=== PATIENT | male | born 1970 | race Two or more races ===

== ENCOUNTER 2016-04-12 21:46 | Emergency (ER) | payer MEDICARE, MEDICAID ==
[~2016-04-12] VITALS: Ht 177.8 cm; Wt 145.1 kg
[~2016-04-12 21:46] MED LIST: CYCL10TA3 PO; DIVA500T12 PO; IBUP600T27 PO; LAM100T OR; LEVE100020 PO; LEVE750T3 PO; NAP500T PO; WARF5TAB71 PO
[2016-04-13 11:34] VITALS: BP 122/78
== END 2016-04-13 13:06 | disposition home or self-care (01) ==
LOC: ER 21:48
DX: S86.911A Strain of unspecified muscle(s) and tendon(s) at lower leg level, right leg, initial encounter (principal); E66.01 Morbid (severe) obesity due to excess calories; Z68.42 Body mass index [BMI] 45.0-49.9, adult; I11.0 Hypertensive heart disease with heart failure; I50.9 Heart failure, unspecified; E11.9 Type 2 diabetes mellitus without complications; G40.909 Epilepsy, unspecified, not intractable, without status epilepticus; E78.5 Hyperlipidemia, unspecified; I48.91 Unspecified atrial fibrillation; Z88.6 Allergy status to analgesic agent; Z88.1 Allergy status to other antibiotic agents
CPT/HCPCS: 29505; 73562

== ENCOUNTER 2016-06-29 13:55 | Emergency (ER) | payer MEDICARE, MEDICAID ==
[~2016-06-29] VITALS: Ht 177.8 cm; Wt 150.1 kg
[2016-06-29 14:49] VITALS: BP 128/86
== END 2016-06-29 15:06 | disposition home or self-care (01) ==
LOC: ER 13:55
DX: G89.29 Other chronic pain (principal); M54.41 Lumbago with sciatica, right side; I48.91 Unspecified atrial fibrillation; I11.0 Hypertensive heart disease with heart failure; I50.9 Heart failure, unspecified; F41.9 Anxiety disorder, unspecified; E66.9 Obesity, unspecified; Z68.42 Body mass index [BMI] 45.0-49.9, adult; Z88.6 Allergy status to analgesic agent; Z88.1 Allergy status to other antibiotic agents; Z79.01 Long term (current) use of anticoagulants

== ENCOUNTER 2016-09-10 09:34 | Emergency (ER) | payer MEDICARE, MEDICAID ==
[~2016-09-10] VITALS: Ht 182.9 cm; Wt 99.8 kg
[2016-09-10 10:10] LABS: Basophils # (auto) 0.1 uL; Basophils % (auto) 0.6 % (0.0-2.0); CONDITION Y; Eosinophils # (auto) 0.1 uL; Eosinophils % (auto) 1.2 % (0.0-7.0); Hematocrit 43.4 % (41.0-53.0); Hemoglobin 14.4 g/dL (13.5-17.5); Lymphocytes # (auto) 1.4 uL; Lymphocytes % (auto) 16.2 % (10.0-50.0); Mean Corpuscular Hemoglobin 29.6 pg (28.0-32.0); Mean Corpuscular Hgb Conc. 33.2 g/dL (32.0-36.0); Mean Corpuscular Volume 89.2 fL (80.0-100.0); Mean Platelet Volume 8.4 fL (7.4-10.4); Monocytes # (auto) 0.6 uL; Monocytes % (auto) 6.3 % (0.0-12.0); Neutrophils # (auto) 6.6 uL; Neutrophils % (auto) 75.7 % (37.0-80.0); Platelet Count (auto) 205 10^3/uL (140-450); Red Cell Distribution Width 15.3 % (11.6-16.0); White Blood Cell 8.8 10^3/uL (4.4-10.8)
[2016-09-10 10:32] LABS: Albumin 3.2 g/dL (3.4-5.0); BUN/Creatinine Ratio 8.3; Calcium 8.4 mg/dL (8.5-10.1); Potassium 3.8 mmol/L (3.5-5.1)
[2016-09-10 10:34] LABS: Bilirubin, Total 0.4 mg/dL (0.2-1.0); Total Protein 7.2 g/dL (6.4-8.2)
[2016-09-10] MEDS ORDERED: VALPROATE INJ 250 MG in SODIUM CHL 0.9% 50 ML IV ONE (11:30)
[2016-09-10] MEDS ORDERED: LORazepam 0.5 MG TAB PO ONE (11:30)
[2016-09-10 12:15] VITALS: BP 132/88
== END 2016-09-10 12:46 | disposition home or self-care (01) ==
LOC: EDBD 09:34 → ER 09:37
DX: G40.909 Epilepsy, unspecified, not intractable, without status epilepticus (principal); R42 Dizziness and giddiness; I48.91 Unspecified atrial fibrillation; I11.0 Hypertensive heart disease with heart failure; I50.9 Heart failure, unspecified; Z87.891 Personal history of nicotine dependence
CPT/HCPCS: 36415; 70450; 80053; 80164; 85025; 96365

== ENCOUNTER → 2016-10-31 | Outpatient (CLI) | payer MEDICARE, MEDICAID ==
[2016-10-31 11:49] LABS: Basophils # (auto) 0 uL; Basophils % (auto) 0.3 % (0.0-2.0); CONDITION Y; Eosinophils # (auto) 0.1 uL; Eosinophils % (auto) 1.1 % (0.0-7.0); Hematocrit 43.4 % (41.0-53.0); Hemoglobin 14.7 g/dL (13.5-17.5); Lymphocytes # (auto) 1.6 uL; Lymphocytes % (auto) 18.5 % (10.0-50.0); Mean Corpuscular Hgb Conc. 33.8 g/dL (32.0-36.0); Mean Corpuscular Volume 88.9 fL (80.0-100.0); Mean Platelet Volume 8.4 fL (7.4-10.4); Monocytes # (auto) 0.5 uL; Neutrophils # (auto) 6.3 uL; Neutrophils % (auto) 74.1 % (37.0-80.0); Platelet Count (auto) 195 10^3/uL (140-450); Red Cell Distribution Width 14.8 % (11.6-16.0); White Blood Cell 8.6 10^3/uL (4.4-10.8)
[2016-10-31 12:05] LABS: INR 1.05 (0.9-1.15); Prothrombin Time 11.5 sec (9.37-12.3)
[2016-10-31 12:25] LABS: Albumin 3.4 g/dL (3.4-5.0)
[2016-10-31 13:19] LABS: BUN/Creatinine Ratio 8.5
[2016-10-31 13:20] LABS: Bilirubin, Total 0.5 mg/dL (0.2-1.0); Potassium 4.6 mmol/L (3.5-5.1); Total Protein 7.2 g/dL (6.4-8.2)
[2016-10-31 13:21] LABS: Calcium 8.6 mg/dL (8.5-10.1)
== END | disposition home or self-care (01) ==
LOC: LAB 11:31
PROVIDERS: ATTEND Physician Assistant
DX: I10 Essential (primary) hypertension (principal); I48.1 Persistent atrial fibrillation; D64.9 Anemia, unspecified; Z79.01 Long term (current) use of anticoagulants; Z79.899 Other long term (current) drug therapy
CPT/HCPCS: 36415; 80053; 80061; 82306; 82607; 83036; 85025; 85610

== ENCOUNTER 2016-11-30 11:28 | Inpatient (IN) | payer MEDICARE, MEDICAID ==
[~2016-11-30] VITALS: Ht 180.3 cm; Wt 142.7 kg
[2016-11-30] MEDS ORDERED: SODIUM CHLORIDE 0.9% 1,000 ML IVB ONE (11:39)
[2016-11-30] MEDS ORDERED: LORazepam 2MG/ML-1ML VIAL IV ONE (11:45)
[2016-11-30 13:06] LABS: Basophils # (auto) 0.1 uL; Basophils % (auto) 0.7 % (0.0-2.0); Eosinophils # (auto) 0 uL; Eosinophils % (auto) 0.6 % (0.0-7.0); Hematocrit 44.1 % (41.0-53.0); Hemoglobin 14.7 g/dL (13.5-17.5); Lymphocytes # (auto) 1.3 uL; Lymphocytes % (auto) 15.8 % (10.0-50.0); Mean Corpuscular Hemoglobin 30.4 pg (28.0-32.0); Mean Corpuscular Hgb Conc. 33.5 g/dL (32.0-36.0); Mean Corpuscular Volume 90.9 fL (80.0-100.0); Monocytes # (auto) 0.6 uL; Monocytes % (auto) 7.2 % (0.0-12.0); Neutrophils # (auto) 6.2 uL; Neutrophils % (auto) 75.7 % (37.0-80.0); Nucleated Red Blood Cells % 0.1 %; Platelet Count (auto) 156 10^3/uL (140-450); Red Cell Distribution Width 15.2 % (11.6-16.0); White Blood Cell 8.2 10^3/uL (4.4-10.8)
[2016-11-30 13:18] LABS: Albumin 3.2 g/dL (3.4-5.0); Anion Gap 8 (5-15); Aspartate Aminotransferase 22 U/L (15-37); BUN/Creatinine Ratio 11.8; Blood Urea Nitrogen 10 mg/dL (7-18); Calcium 8.6 mg/dL (8.5-10.1); Carbon Dioxide 25 mmol/L (21-32); Chloride 107 mmol/L (98-107); GFR African American 126 mL/min; GFR Non-African American 104 mL/min; Glucose 98 mg/dL (74-106); Magnesium 2.3 mg/dL (1.6-2.6); Sodium 140 mmol/L (136-145)
[2016-11-30 13:21] LABS: Alkaline Phosphatase 48 U/L (45-117); Bilirubin, Total 0.4 mg/dL (0.2-1.0); Total Protein 6.9 g/dL (6.4-8.2)
[2016-11-30] MEDS: SODIUM CHLORIDE 0.9% 1,000 ML IV SCH ×2 (14:14→21:47)
[2016-11-30] MEDS ORDERED: PROMETHAZINE HCL 25 MG/ML 1ML IV PRN (14:15)
[2016-11-30] MEDS ORDERED: ACETAMINOPHEN 500 MG TAB PO PRN (14:15)
[2016-11-30] MEDS ORDERED: MORPHINE SULFATE 4 MG/ML SYRG IV PRN (14:15)
[2016-11-30] MEDS ORDERED: TEMAZEPAM 15 MG CAP PO PRN (14:15)
[2016-11-30] MEDS ORDERED: MORPHINE SULF INJ 2 MG/ML SYRINGE 1ML IV PRN (14:15)
[2016-11-30] MEDS ORDERED: LACTULOSE 20Gm/30ML SOLN PO PRN (14:15)
[2016-11-30] MEDS ORDERED: HYDROcodone-ACET 5/325MG TAB PO PRN (14:15)
[2016-11-30] MEDS ORDERED: NITROGLYCERIN 0.4 MG SL TAB SL PRN (14:15)
[2016-11-30] MEDS ORDERED: LORazepam 2MG/ML-1ML VIAL IV PRN (14:15)
[2016-11-30] MEDS ORDERED: LORazepam 0.5 MG TAB PO PRN (14:15)
[2016-11-30] MEDS ORDERED: MORPHINE SULF INJ 2 MG/ML SYRINGE 1ML ONE (15:24)
[2016-11-30] MEDS: ENOXAPARIN SOD 40 MG/0.4 ML SYRINGE SC SCH (15:29)
[2016-11-30] MEDS ORDERED: LEVETIRACETAM 500 MG TAB PO ONE (15:30)
[2016-11-30] MEDS ORDERED: DIGO1TAB37 PO (18:49)
[2016-11-30] MEDS ORDERED: CEPH500C PO (18:49)
[2016-11-30] MEDS ORDERED: HYDR-4663 PO (18:49)
[2016-11-30] MEDS ORDERED: HYDROcodone-ACET 10/325MG TAB PO PRN (19:30)
[2016-11-30 21:30] VITALS: BP 120/80
[2016-11-30] MEDS: LEVETIRACETAM 500 MG TAB PO SCH (21:48)
[2016-11-30] MEDS ORDERED: LEVETIRACETAM 500 MG TAB PO SCH (22:00)
[2016-11-30 23:52] VITALS: BP_SYST 115; BP_SYST 117; BP_DIAS 59; BP_DIAS 65
[2016-12-01 05:00] VITALS: BP 120/59
[2016-12-01 06:21] LABS: Cholesterol 156 mg/dL (< 200); HDL Cholesterol 21 mg/dL (40-59); LDL Cholesterol 125 mg/dL (< 100); Triglycerides 204 mg/dL (< 150)
[2016-12-01 09:00] VITALS: BP 128/66
[2016-12-01 10:28] LABS: Urine Bilirubin Negative (Negative); Urine Blood Negative /uL (Negative); Urine Color Yellow (Yellow); Urine Glucose Normal (Normal); Urine Ketone Negative (Negative); Urine Nitrite Negative (Negative); Urine RBC <1 /hpf (0 - 3); Urine Squamous Epithelial Cell FEW /hpf (<5); Urine Urobilinogen Normal (Negative)
[2016-12-01] MEDS: ENOXAPARIN SOD 40 MG/0.4 ML SYRINGE SC SCH (10:58)
[2016-12-01] MEDS: LEVETIRACETAM 500 MG TAB PO SCH (10:58)
[2016-12-01 14:20] VITALS: BP 121/52
[2016-12-01 15:01] VITALS: BP 121/52
== END 2016-12-01 15:45 | disposition home or self-care (01) | DRG 101 ==
LOC: EDBD 11:28 → ER 11:28 → TELE 11:29 → TELE-CENTR 17:21
PROVIDERS: ADMIT Internal Medicine; ATTEND Internal Medicine
DX: G40.409 Other generalized epilepsy and epileptic syndromes, not intractable, without status epilepticus (principal); Z68.41 Body mass index [BMI] 40.0-44.9, adult; I10 Essential (primary) hypertension; I48.0 Paroxysmal atrial fibrillation; E66.01 Morbid (severe) obesity due to excess calories; M54.5 Low back pain; G47.33 Obstructive sleep apnea (adult) (pediatric); E11.9 Type 2 diabetes mellitus without complications; F17.200 Nicotine dependence, unspecified, uncomplicated; G89.29 Other chronic pain; R32 Unspecified urinary incontinence; Z79.899 Other long term (current) drug therapy; Z82.49 Family history of ischemic heart disease and other diseases of the circulatory system; Z83.3 Family history of diabetes mellitus; Z88.1 Allergy status to other antibiotic agents; Z88.5 Allergy status to narcotic agent; Z79.01 Long term (current) use of anticoagulants
CPT/HCPCS: 36415; 70450; 71010; 80053; 80061; 80164; 80307; 80320; 81001; 82542; 83735; 85025; 85652; 93005; 96374; 96375

== ENCOUNTER → 2016-12-05 | Outpatient (CLI) | payer MEDICARE, MEDICAID ==
[~2016-12-05] VITALS: Ht 177.8 cm; Wt 145.1 kg
[~2016-12-05] MED LIST changes: +ADENOSINE 122 MG in GIVE UN-DILUTED 0 ML IV STA; +ALBUTEROL SULF 2.5 MG/0.5ML(0.5%) NEB SOLN ONE; +CEPH500C PO; +DIGO1TAB37 PO; +HYDR-4663 PO; +IPRATROPIUM BROM 0.5 MG/2.5ML INH SOL ONE
== END | disposition home or self-care (01) ==
LOC: XY 06:44
PROVIDERS: ATTEND Internal Medicine Cardiovascular Disease
DX: I48.91 Unspecified atrial fibrillation (principal); R06.02 Shortness of breath
CPT/HCPCS: 78452; 93017; 93306; A9500; J0153

== ENCOUNTER 2017-01-01 17:08 | Emergency (ER) | payer MEDICARE, MEDICAID ==
[~2017-01-01] VITALS: Ht 177.8 cm; Wt 145.1 kg
[~2017-01-01 17:08] MED LIST changes: -ADENOSINE 122 MG in GIVE UN-DILUTED 0 ML IV STA; -ALBUTEROL SULF 2.5 MG/0.5ML(0.5%) NEB SOLN ONE; -IPRATROPIUM BROM 0.5 MG/2.5ML INH SOL ONE
[2017-01-01 18:43] VITALS: BP 123/88
[2017-01-01] MEDS ORDERED: ONDANSETRON HCL 4 MG/2 ML VIAL IM ONE (19:15)
[2017-01-01] MEDS ORDERED: HYDROmorphone HCL 2 MG/ML VL IM ONE (19:15)
== END 2017-01-01 20:03 | disposition home or self-care (01) ==
LOC: ER 17:13
DX: G89.29 Other chronic pain (principal); M54.5 Low back pain; M54.31 Sciatica, right side; M54.16 Radiculopathy, lumbar region; M79.1 Myalgia; I11.0 Hypertensive heart disease with heart failure; I50.9 Heart failure, unspecified; I48.91 Unspecified atrial fibrillation; Z88.6 Allergy status to analgesic agent; Z88.1 Allergy status to other antibiotic agents; Z79.899 Other long term (current) drug therapy
CPT/HCPCS: 96372; 99284; J1170; J2405

== ENCOUNTER 2017-01-02 22:40 | Emergency (ER) | payer MEDICARE, MEDICAID ==
[~2017-01-02] VITALS: Ht 177.8 cm; Wt 145.1 kg
[2017-01-03 07:24] VITALS: BP 129/80
[2017-01-03] MEDS ORDERED: PROMETHAZINE HCL 25 MG/ML 1ML IM ONE (08:00)
[2017-01-03] MEDS ORDERED: HYDROmorphone HCL 2 MG/ML VL IM ONE (08:00)
== END 2017-01-03 08:19 | disposition home or self-care (01) ==
LOC: EDBD 22:40 → ER 22:42
DX: G89.29 Other chronic pain (principal); M54.5 Low back pain; M54.16 Radiculopathy, lumbar region; I11.0 Hypertensive heart disease with heart failure; I50.9 Heart failure, unspecified; I48.91 Unspecified atrial fibrillation; Z79.899 Other long term (current) drug therapy; Z88.6 Allergy status to analgesic agent; Z88.1 Allergy status to other antibiotic agents
CPT/HCPCS: 96372; 99284; J1170; J2550

== ENCOUNTER → 2017-01-10 | Outpatient (CLI) | payer MEDICARE, MEDICAID ==
[~2017-01-10] MED LIST changes: -HYDR-4663 PO; +HYDR-4683 PO
[2017-01-10 12:13] LABS: Hematocrit 46.2 % (41.0-53.0); Hemoglobin 15.7 g/dL (13.5-17.5); Mean Corpuscular Hemoglobin 30.4 pg (28.0-32.0); Mean Corpuscular Volume 89.5 fL (80.0-100.0); Mean Platelet Volume 8.2 fL (6.9-10.8); Platelet Count (auto) 189 10^3/uL (140-450); Red Cell Distribution Width 14.5 % (11.8-14.3); White Blood Cell 12.3 10^3/uL (4.4-10.8)
[2017-01-10 12:17] LABS: Metamyelocytes % 0; Myelocytes % 0; Promyelocytes % 0; Reactive Lymphocytes 0
[2017-01-10 12:37] LABS: Large Platelets FEW; Platelet Estimate Adequate; RBC Morphology Normal
[2017-01-10 12:49] LABS: Albumin 3.5 g/dL (3.4-5.0); Bilirubin, Total 0.7 mg/dL (0.2-1.0); Total Protein 7.7 g/dL (6.4-8.2)
== END | disposition home or self-care (01) ==
LOC: LAB 11:54
PROVIDERS: ATTEND Internal Medicine Cardiovascular Disease
DX: I48.1 Persistent atrial fibrillation (principal); R79.89 Other specified abnormal findings of blood chemistry; I10 Essential (primary) hypertension; E11.9 Type 2 diabetes mellitus without complications
CPT/HCPCS: 36415; 80053; 80061; 84439; 84443; 84481; 85007; 85027

== ENCOUNTER 2017-04-30 00:40 | Emergency (ER) | payer MEDICARE, MEDICAID ==
[~2017-04-30] VITALS: Ht 180.3 cm; Wt 136.1 kg
[2017-04-30 00:55] VITALS: BP 118/79
[2017-04-30] MEDS ORDERED: HYDROcodone-ACET 10/325MG TAB PO ONE (04:45)
== END 2017-04-30 05:05 | disposition home or self-care (01) ==
LOC: EDBD 00:40 → ER 00:50
DX: S43.422A Sprain of left rotator cuff capsule, initial encounter (principal); I11.0 Hypertensive heart disease with heart failure; I50.9 Heart failure, unspecified; I48.91 Unspecified atrial fibrillation; Z79.01 Long term (current) use of anticoagulants; X58.XXXA Exposure to other specified factors, initial encounter; Y93.89 Activity, other specified; Y92.89 Other specified places as the place of occurrence of the external cause; Y99.8 Other external cause status
CPT/HCPCS: 73030; 93005

== ENCOUNTER 2017-05-14 11:00 | Inpatient (IN) | payer MEDICARE, MEDICAID ==
[~2017-05-14] VITALS: Ht 172.7 cm; Wt 144.5 kg
[2017-05-14] MEDS ORDERED: LEVETIRACETAM INJ 1,000 MG in D5W 5% 100 ML IV ONE (11:45)
[2017-05-14 12:13] LABS: Hematocrit 43.5 % (41.0-53.0); Hemoglobin 14.7 g/dL (13.5-17.5); Mean Corpuscular Hemoglobin 30.2 pg (28.0-32.0); Mean Corpuscular Hgb Conc. 33.9 g/dL (32.0-36.0); Mean Corpuscular Volume 89.2 fL (80.0-100.0); Platelet Count (auto) 184 10^3/uL (140-450); Red Blood Cells 4.88 10^6/uL (4.5-5.90); Red Cell Distribution Width 14.6 % (11.8-14.3); White Blood Cell 8.1 10^3/uL (4.4-10.8)
[2017-05-14 12:17] LABS: Basophils % (manual) 0 (0.0-2.0); Blast Cells 0; Eosinophils % (manual) 0 (0-7); Metamyelocytes % 0; Myelocytes % 0; Promyelocytes % 0; Reactive Lymphocytes 0
[2017-05-14 12:33] LABS: Albumin 3.3 g/dL (3.4-5.0); BUN/Creatinine Ratio 11.8; Calcium 8.5 mg/dL (8.5-10.1); Potassium 4.2 mmol/L (3.5-5.1)
[2017-05-14 12:36] LABS: Bilirubin, Total 0.3 mg/dL (0.2-1.0); Total Protein 7.3 g/dL (6.4-8.2)
[2017-05-14 13:05] LABS: Band Neutrophils % (manual) 4; Lymphocytes % (manual) 18 (10.0-50.0); Monocytes % (manual) 2 (0-12)
[2017-05-14] MEDS ORDERED: LORazepam 2MG/ML-1ML VIAL ONE (14:28)
[2017-05-14] MEDS ORDERED: LORazepam 2MG/ML-1ML VIAL IV ONE (14:30)
[2017-05-14 15:14] LABS: Alcohol, Urine < 3.0 mg/dL (0-5); Amphetamine Screen, Urine NEGATIVE (NEGATIVE); Barbiturate Scree,Urine NEGATIVE (NEGATIVE); Benzodiazephine Screen, Urine NEGATIVE (NEGATIVE); Cannabinoid Screen, Urine NEGATIVE (NEGATIVE); Cocaine Screen, Urine NEGATIVE (NEGATIVE); Opiate Scree,Urine NEGATIVE (NEGATIVE); Phencyclidine Screen, Urine NEGATIVE (NEGATIVE)
[2017-05-14] MEDS ORDERED: cloNIDine HCL 0.1 MG TAB PO PRN (15:45)
[2017-05-14] MEDS ORDERED: LORazepam 2MG/ML-1ML VIAL IV PRN (15:45)
[2017-05-14] MEDS ORDERED: TEMAZEPAM 15 MG CAP PO PRN (16:00)
[2017-05-14] MEDS ORDERED: HYDROcodone-ACET 5/325MG TAB PO PRN (16:00)
[2017-05-14] MEDS ORDERED: ONDANSETRON HCL 4 MG/2 ML VIAL IV PRN (16:00)
[2017-05-14] MEDS ORDERED: MORPHINE SULFATE 4 MG/ML SYR/VIAL IV PRN ×2 (16:00)
[2017-05-14] MEDS ORDERED: NITROGLYCERIN 0.4 MG SL TAB SL PRN (16:00)
[2017-05-14] MEDS ORDERED: DOCUSATE SOD 100 MG CAP PO PRN (16:00)
[2017-05-14] MEDS ORDERED: ACETAMINOPHEN 325 MG TAB PO PRN (16:00)
[2017-05-14] MEDS: ENALAPRIL MALEATE 2.5 MG TAB PO SCH (16:51)
[2017-05-14] MEDS ORDERED: IBUPROFEN 100MG/5ML ORAL SUSP 100 MG/5 ML UD ONE (17:56)
[2017-05-14] MEDS: BOOST PLUS 8 ounce PO SCH (18:05)
[2017-05-14 20:16] LABS: INR 1.04 (0.9-1.15); Partial Thromboplastin Time 28.9 sec (22.64-33.71); Prothrombin Time 11.3 sec (9.37-12.3)
[2017-05-14] MEDS ORDERED: WARFARIN SODIUM 10 MG TAB PO ONE (20:45)
[2017-05-14] MEDS ORDERED: LEVETIRACETAM 500 MG TAB PO SCH (22:00)
[2017-05-14] MEDS ORDERED: lamoTRIgine 100 MG TAB PO SCH (22:00)
[2017-05-14] MEDS: SODIUM CHLOR 0.9% PF (SALINE LOCK) 10ML VIAL IV SCH (22:09)
[2017-05-14] MEDS: LEVETIRACETAM 500 MG TAB PO SCH (22:09)
[2017-05-14] MEDS: FAMOTIDINE 20 MG TAB PO SCH (22:10)
[2017-05-14 23:43] VITALS: BP 122/57
[2017-05-15 00:48] VITALS: BP 122/57
[2017-05-15 05:37] VITALS: BP 113/64
[2017-05-15] MEDS: SODIUM CHLOR 0.9% PF (SALINE LOCK) 10ML VIAL IV SCH ×3 (06:00→22:10)
[2017-05-15 06:57] LABS: INR 1.02 (0.9-1.15); Prothrombin Time 11.1 sec (9.37-12.3)
[2017-05-15 07:04] LABS: Hematocrit 43.7 % (41.0-53.0); Hemoglobin 14.9 g/dL (13.5-17.5); Mean Corpuscular Hemoglobin 30.5 pg (28.0-32.0); Mean Corpuscular Volume 89.6 fL (80.0-100.0); Platelet Count (auto) 189 10^3/uL (140-450); Red Blood Cells 4.88 10^6/uL (4.5-5.90); Red Cell Distribution Width 14.4 % (11.8-14.3); White Blood Cell 10.2 10^3/uL (4.4-10.8)
[2017-05-15 07:12] LABS: Albumin 3.1 g/dL (3.4-5.0); Calcium 8.8 mg/dL (8.5-10.1); Potassium 4.3 mmol/L (3.5-5.1)
[2017-05-15 07:18] LABS: BUN/Creatinine Ratio 12.8; Bilirubin, Total 0.5 mg/dL (0.2-1.0); Total Protein 7.2 g/dL (6.4-8.2)
[2017-05-15 07:27] LABS: Basophils % (manual) 0 (0.0-2.0); Blast Cells 0; Metamyelocytes % 0; Myelocytes % 0; Promyelocytes % 0; Reactive Lymphocytes 0
[2017-05-15] MEDS: BOOST PLUS 8 ounce PO SCH ×3 (08:00→18:25)
[2017-05-15 09:00] VITALS: BP 98/62
[2017-05-15] MEDS: FAMOTIDINE 20 MG TAB PO SCH ×2 (09:04→22:10)
[2017-05-15] MEDS: METOPROLOL SUCCINATE XL 50 MG TAB PO SCH (09:05)
[2017-05-15] MEDS: LEVETIRACETAM 500 MG TAB PO SCH ×2 (09:05→22:10)
[2017-05-15] MEDS: MULTIPLE VITAMIN TAB PO SCH (09:06)
[2017-05-15] MEDS: ENALAPRIL MALEATE 2.5 MG TAB PO SCH (09:06)
[2017-05-15] MEDS: DIGOXIN 0.25 MG TAB PO SCH (09:06)
[2017-05-15 12:19] VITALS: BP 111/67
[2017-05-15 15:12] LABS: Band Neutrophils % (manual) 11; Eosinophils % (manual) 4 (0-7); Lymphocytes % (manual) 18 (10.0-50.0); Monocytes % (manual) 8 (0-12)
[2017-05-15 16:08] VITALS: BP 106/68
[2017-05-15] MEDS ORDERED: WARFARIN SODIUM 10 MG TAB PO ONE (17:00)
[2017-05-15 22:00] VITALS: BP 101/57
[2017-05-16] MEDS: SODIUM CHLOR 0.9% PF (SALINE LOCK) 10ML VIAL IV SCH ×2 (06:00→14:00)
[2017-05-16 06:03] VITALS: BP 100/69
[2017-05-16 07:46] LABS: Hematocrit 46.2 % (41.0-53.0); Hemoglobin 15.6 g/dL (13.5-17.5); Mean Corpuscular Hemoglobin 30.3 pg (28.0-32.0); Mean Corpuscular Hgb Conc. 33.8 g/dL (32.0-36.0); Mean Corpuscular Volume 89.6 fL (80.0-100.0); Platelet Count (auto) 185 10^3/uL (140-450); Red Blood Cells 5.15 10^6/uL (4.5-5.90); Red Cell Distribution Width 14.6 % (11.8-14.3); White Blood Cell 10.1 10^3/uL (4.4-10.8)
[2017-05-16 07:54] LABS: Basophils % (manual) 0 (0.0-2.0); Blast Cells 0; Metamyelocytes % 0; Myelocytes % 0; Promyelocytes % 0; Reactive Lymphocytes 0
[2017-05-16 07:55] LABS: INR 1.18 (0.9-1.15); Partial Thromboplastin Time 31.4 sec (22.64-33.71); Prothrombin Time 12.9 sec (9.37-12.3)
[2017-05-16] MEDS: BOOST PLUS 8 ounce PO SCH ×2 (08:00→12:00)
[2017-05-16 08:04] LABS: Albumin 3.2 g/dL (3.4-5.0); BUN/Creatinine Ratio 14.3; Calcium 8.9 mg/dL (8.5-10.1); Potassium 4.3 mmol/L (3.5-5.1)
[2017-05-16 08:07] LABS: Bilirubin, Total 0.4 mg/dL (0.2-1.0); Total Protein 7.5 g/dL (6.4-8.2)
[2017-05-16 08:24] VITALS: BP 108/57
[2017-05-16] MEDS: LEVETIRACETAM 500 MG TAB PO SCH (09:28)
[2017-05-16] MEDS: MULTIPLE VITAMIN TAB PO SCH (09:29)
[2017-05-16] MEDS: METOPROLOL SUCCINATE XL 50 MG TAB PO SCH (09:30)
[2017-05-16] MEDS: FAMOTIDINE 20 MG TAB PO SCH (09:35)
[2017-05-16] MEDS: DIGOXIN 0.25 MG TAB PO SCH (10:00)
[2017-05-16] MEDS: ENALAPRIL MALEATE 2.5 MG TAB PO SCH (10:00)
[2017-05-16 11:25] LABS: Band Neutrophils % (manual) 5; Eosinophils % (manual) 2 (0-7); Lymphocytes % (manual) 22 (10.0-50.0); Monocytes % (manual) 2 (0-12)
[2017-05-16 11:54] VITALS: BP 106/67
[2017-05-16 14:30] VITALS: BP 108/57
[2017-05-16] MEDS ORDERED: WARFARIN SODIUM 10 MG TAB PO ONE (17:00)
== END 2017-05-16 15:55 | disposition home or self-care (01) | DRG 101 ==
LOC: EDBD 11:00 → ER 11:00 → TELE 11:01 → TELE-EAST 19:28
PROVIDERS: ADMIT Internal Medicine; ATTEND Family Medicine
DX: G40.409 Other generalized epilepsy and epileptic syndromes, not intractable, without status epilepticus (principal); D68.69 Other thrombophilia; E44.0 Moderate protein-calorie malnutrition; I48.91 Unspecified atrial fibrillation; I50.32 Chronic diastolic (congestive) heart failure; I11.0 Hypertensive heart disease with heart failure; I48.92 Unspecified atrial flutter; Z68.42 Body mass index [BMI] 45.0-49.9, adult; G47.33 Obstructive sleep apnea (adult) (pediatric); M54.5 Low back pain; E66.9 Obesity, unspecified; G89.29 Other chronic pain; Z79.899 Other long term (current) drug therapy; Z82.49 Family history of ischemic heart disease and other diseases of the circulatory system; Z83.3 Family history of diabetes mellitus; Z88.5 Allergy status to narcotic agent; Z79.01 Long term (current) use of anticoagulants; Z79.1 Long term (current) use of non-steroidal anti-inflammatories (NSAID); Z88.1 Allergy status to other antibiotic agents
CPT/HCPCS: 36415; 80053; 80164; 80307; 82542; 85007; 85027; 85610; 85730; 87081; 93005; 94660; 94761; 96365; 96375; J7060

== ENCOUNTER 2017-07-11 11:04 | Emergency (ER) | payer MEDICARE, MEDICAID ==
[~2017-07-11] VITALS: Ht 177.8 cm; Wt 117.9 kg
[~2017-07-11 11:04] MED LIST changes: -CEPH500C PO
[2017-07-11 11:40] LABS: Basophils # (auto) 0 uL; Basophils % (auto) 0.4 % (0.0-2.0); Eosinophils # (auto) 0.1 uL; Eosinophils % (auto) 1.1 % (0.0-7.0); Hematocrit 46.7 % (41.0-53.0); Hemoglobin 15.6 g/dL (13.5-17.5); Lymphocytes # (auto) 1.5 uL; Lymphocytes % (auto) 18.2 % (10.0-50.0); Mean Corpuscular Hemoglobin 30.4 pg (28.0-32.0); Mean Corpuscular Hgb Conc. 33.3 g/dL (32.0-36.0); Mean Corpuscular Volume 91.3 fL (80.0-100.0); Monocytes # (auto) 0.6 uL; Monocytes % (auto) 6.7 % (0.0-12.0); Neutrophils # (auto) 6.1 uL; Neutrophils % (auto) 73.6 % (37.0-80.0); Nucleated Red Blood Cells % 0.1 %; Platelet Count (auto) 154 10^3/uL (140-450); Red Blood Cells 5.12 10^6/uL (4.5-5.90); Red Cell Distribution Width 15.8 % (11.8-14.3); White Blood Cell 8.3 10^3/uL (4.4-10.8)
[2017-07-11 11:53] LABS: INR 1.17 (0.9-1.15); Prothrombin Time 12.8 sec (9.37-12.3)
[2017-07-11 11:57] LABS: Albumin 3.3 g/dL (3.4-5.0); BUN/Creatinine Ratio 10.5; Bilirubin, Total 0.5 mg/dL (0.2-1.0); Calcium 8.7 mg/dL (8.5-10.1); Potassium 3.9 mmol/L (3.5-5.1); Total Protein 7.5 g/dL (6.4-8.2)
[2017-07-11] MEDS ORDERED: BACL20TA (12:08)
[2017-07-11] MEDS ORDERED: METO-169 (12:08)
[2017-07-11] MEDS ORDERED: WARF7.5T20 (12:08)
[2017-07-11] MEDS ORDERED: DIVA500T7 (12:08)
[2017-07-11 12:09] LABS: Digoxin (Lanoxin) 0.3 ng/mL (0.8-2)
[2017-07-11 13:00] VITALS: BP 126/61
== END 2017-07-11 13:25 | disposition home or self-care (01) ==
LOC: EDBD 11:04 → ER 11:08
DX: G40.909 Epilepsy, unspecified, not intractable, without status epilepticus (principal); I11.0 Hypertensive heart disease with heart failure; I50.9 Heart failure, unspecified; I48.91 Unspecified atrial fibrillation; Z87.891 Personal history of nicotine dependence
CPT/HCPCS: 36415; 80053; 80162; 80164; 85025; 85610; 85730; 94761

== ENCOUNTER 2017-11-05 13:25 | Emergency (ER) | payer MEDICARE, MEDICAID ==
[~2017-11-05] VITALS: Ht 177.8 cm; Wt 158.8 kg
[~2017-11-05 13:25] MED LIST changes: +BACL20TA; -DIVA500T12 PO; +DIVA500T7; +METO-169; -WARF5TAB71 PO; +WARF7.5T20
[2017-11-05 13:45] VITALS: BP 105/60
[2017-11-05 14:49] LABS: Basophils # (auto) 0 uL; Basophils % (auto) 0.5 % (0.0-2.0); Eosinophils # (auto) 0.1 uL; Eosinophils % (auto) 0.7 % (0.0-7.0); Hematocrit 41.6 % (41.0-53.0); Hemoglobin 13.9 g/dL (13.5-17.5); Lymphocytes # (auto) 1.4 uL; Lymphocytes % (auto) 16.2 % (10.0-50.0); Mean Corpuscular Hemoglobin 30.1 pg (28.0-32.0); Mean Corpuscular Hgb Conc. 33.3 g/dL (32.0-36.0); Mean Corpuscular Volume 90.3 fL (80.0-100.0); Monocytes # (auto) 0.5 uL; Monocytes % (auto) 5.6 % (0.0-12.0); Neutrophils # (auto) 6.6 uL; Nucleated Red Blood Cells % 0.1 %; Platelet Count (auto) 157 10^3/uL (140-450); Red Cell Distribution Width 14.8 % (11.8-14.3); White Blood Cell 8.6 10^3/uL (4.4-10.8)
[2017-11-05 15:07] LABS: Alanine Aminotransferase 33 U/L (16-61); Albumin 3.1 g/dL (3.4-5.0); Anion Gap 9 (5-15); Aspartate Aminotransferase 14 U/L (15-37); BUN/Creatinine Ratio 11.9; Blood Urea Nitrogen 10 mg/dL (7-18); Calcium 8.1 mg/dL (8.5-10.1); Carbon Dioxide 25 mmol/L (21-32); Chloride 106 mmol/L (98-107); GFR African American 127 mL/min; GFR Non-African American 105 mL/min; Glucose 113 mg/dL (74-106); Potassium 4.1 mmol/L (3.5-5.1); Salicylate < 1.7 mg/dL (2.8-20.0); Sodium 140 mmol/L (136-145)
[2017-11-05 15:12] LABS: Alkaline Phosphatase 48 U/L (45-117); Bilirubin, Total 0.5 mg/dL (0.2-1.0); Total Protein 7.2 g/dL (6.4-8.2)
[2017-11-05 15:14] LABS: Acetaminophen < 2.0 ug/mL (10-30)
== END 2017-11-05 15:45 | disposition left against medical advice (07) ==
LOC: ER 13:25
DX: G40.909 Epilepsy, unspecified, not intractable, without status epilepticus (principal); F32.9 Major depressive disorder, single episode, unspecified; I48.91 Unspecified atrial fibrillation; I48.92 Unspecified atrial flutter; E66.01 Morbid (severe) obesity due to excess calories; F41.9 Anxiety disorder, unspecified; I10 Essential (primary) hypertension; Z88.6 Allergy status to analgesic agent; Z88.8 Allergy status to other drugs, medicaments and biological substances; Z68.43 Body mass index [BMI] 50.0-59.9, adult; Z79.899 Other long term (current) drug therapy
CPT/HCPCS: 36415; 80053; 80329; 84484; 85025; 93005

== ENCOUNTER 2017-12-13 18:47 | Emergency (ER) | payer MEDICARE, MEDICAID ==
[~2017-12-13] VITALS: Ht 177.8 cm; Wt 136.1 kg
[~2017-12-13 18:47] MED LIST changes: +DIVA1TAB59; -DIVA500T7
[2017-12-13 19:48] LABS: Hematocrit 42.7 % (41.0-53.0); Hemoglobin 14.4 g/dL (13.5-17.5); Mean Corpuscular Hemoglobin 30.8 pg (28.0-32.0); Mean Corpuscular Hgb Conc. 33.8 g/dL (32.0-36.0); Platelet Count (auto) 158 10^3/uL (140-450); Red Blood Cells 4.69 10^6/uL (4.5-5.90)
[2017-12-13 19:56] LABS: Basophils % (manual) 0 (0.0-2.0); Blast Cells 0; Myelocytes % 0; Promyelocytes % 0; Reactive Lymphocytes 0
[2017-12-13 20:11] LABS: Alanine Aminotransferase 36 U/L (16-61); Albumin 3.1 g/dL (3.4-5.0); Alkaline Phosphatase 45 U/L (45-117); Anion Gap 8 (5-15); Aspartate Aminotransferase 21 U/L (15-37); Bilirubin, Total 0.2 mg/dL (0.2-1.0); Blood Alcohol < 3.0 mg/dL (0-5); Blood Urea Nitrogen 11 mg/dL (7-18); Calcium 8.7 mg/dL (8.5-10.1); Carbon Dioxide 25 mmol/L (21-32); Chloride 106 mmol/L (98-107); GFR African American 114 mL/min; GFR Non-African American 95 mL/min; Glucose 163 mg/dL (74-106); Potassium 3.7 mmol/L (3.5-5.1); Sodium 139 mmol/L (136-145); Total Protein 7.2 g/dL (6.4-8.2)
[2017-12-13 20:49] LABS: Band Neutrophils % (manual) 5; Eosinophils % (manual) 2 (0-7); Lymphocytes % (manual) 39 (10.0-50.0); Metamyelocytes % 2; Monocytes % (manual) 6 (0-12)
[2017-12-13 21:11] LABS: Urine WBC None Seen /hpf (0 - 3)
[2017-12-13 21:23] LABS: Urine Amorphous Crystal FEW /hpf (None Seen); Urine Bacteria NONE SEEN /hpf (None Seen); Urine Blood Negative /uL (Negative); Urine Mucus FEW (None Seen)
[2017-12-13 21:40] LABS: Alcohol, Urine < 3.0 mg/dL (0-5); Amphetamine Screen, Urine NEGATIVE (NEGATIVE); Barbiturate Scree,Urine NEGATIVE (NEGATIVE); Benzodiazephine Screen, Urine NEGATIVE (NEGATIVE); Cannabinoid Screen, Urine NEGATIVE (NEGATIVE); Cocaine Screen, Urine NEGATIVE (NEGATIVE); Opiate Scree,Urine NEGATIVE (NEGATIVE); Phencyclidine Screen, Urine NEGATIVE (NEGATIVE)
[2017-12-13] MEDS ORDERED: LORazepam 2MG/ML-1ML VIAL ONE (22:04)
[2017-12-13] MEDS ORDERED: LORazepam 2MG/ML-1ML VIAL IM ONE (22:15)
[2017-12-13 22:50] VITALS: BP 128/76
== END 2017-12-13 21:50 | disposition home or self-care (01) ==
LOC: EDBD 18:47 → ER 18:47
DX: G40.909 Epilepsy, unspecified, not intractable, without status epilepticus (principal); R73.9 Hyperglycemia, unspecified; E66.01 Morbid (severe) obesity due to excess calories; Z68.41 Body mass index [BMI] 40.0-44.9, adult; I48.91 Unspecified atrial fibrillation; I10 Essential (primary) hypertension; Z87.891 Personal history of nicotine dependence
CPT/HCPCS: 36415; 70450; 72125; 80053; 80164; 80307; 80320; 81001; 84484; 85007; 85027; 94761; 99285; J2060; 93005

== ENCOUNTER → 2017-12-31 | Outpatient (CLI) | payer MEDICARE, MEDICAID ==
[~2017-12-31] VITALS: Ht 175.3 cm; Wt 144.7 kg
[~2017-12-31] MED LIST changes: +ADENOSINE 122 MG in GIVE UN-DILUTED 0 ML IV STA
[2017-12-31 10:34] VITALS: BP 125/72
== END | disposition home or self-care (01) ==
LOC: XY 09:11
PROVIDERS: ATTEND Internal Medicine
DX: I48.91 Unspecified atrial fibrillation (principal)
CPT/HCPCS: 78452; 93017; A9500; J0153

== ENCOUNTER 2018-01-23 10:05 | Emergency (ER) | payer MEDICAID, MEDICARE ==
[~2018-01-23] VITALS: Ht 185.4 cm; Wt 136.1 kg
[~2018-01-23 10:05] MED LIST changes: -ADENOSINE 122 MG in GIVE UN-DILUTED 0 ML IV STA
[2018-01-23] MEDS ORDERED: SODIUM CHLORIDE 0.9% 1,000 ML IV ONE (10:21)
[2018-01-23] MEDS ORDERED: LORazepam 2MG/ML-1ML VIAL IV ONE (10:30)
[2018-01-23] MEDS ORDERED: LEVETIRACETAM 500 MG TAB PO ONE (10:45)
[2018-01-23] MEDS ORDERED: KETOROLAC TROMETH 30 MG/ML 1ML VIAL IV ONE (10:45)
[2018-01-23 10:59] LABS: Hemoglobin 15.5 g/dL (13.5-17.5); Mean Corpuscular Hemoglobin 30.6 pg (28.0-32.0); Mean Corpuscular Hgb Conc. 33.7 g/dL (32.0-36.0); Platelet Count (auto) 151 10^3/uL (140-450); Red Blood Cells 5.05 10^6/uL (4.5-5.90); Red Cell Distribution Width 14.9 % (11.8-14.3); White Blood Cell 8.1 10^3/uL (4.4-10.8)
[2018-01-23 11:11] LABS: Band Neutrophils % (manual) 0; Basophils % (manual) 0 (0.0-2.0); Blast Cells 0; Metamyelocytes % 0; Myelocytes % 0; Promyelocytes % 0; Reactive Lymphocytes 0
[2018-01-23 11:18] LABS: Albumin 3.3 g/dL (3.4-5.0); BUN/Creatinine Ratio 6.9; Calcium 8.8 mg/dL (8.5-10.1); Potassium 3.8 mmol/L (3.5-5.1)
[2018-01-23 11:21] LABS: Bilirubin, Total 0.4 mg/dL (0.2-1.0); Total Protein 7.6 g/dL (6.4-8.2)
[2018-01-23 11:39] LABS: Eosinophils % (manual) 3 (0-7); Lymphocytes % (manual) 25 (10.0-50.0); Monocytes % (manual) 4 (0-12)
[2018-01-23] MEDS ORDERED: SODIUM CHLORIDE 0.9% 500 ML IV ONE (13:45)
[2018-01-23 14:28] LABS: Urine Bacteria NONE SEEN /hpf (None Seen); Urine Blood Negative /uL (Negative); Urine Mucus FEW (None Seen); Urine Specific Gravity 1.013 (1.001-1.035); Urine WBC 1 /hpf (0 - 3)
[2018-01-23 15:00] VITALS: BP 106/62
== END 2018-01-23 12:58 | disposition home or self-care (01) ==
LOC: EDBD 10:05 → ER 10:07
DX: G40.909 Epilepsy, unspecified, not intractable, without status epilepticus (principal); F41.9 Anxiety disorder, unspecified; F32.9 Major depressive disorder, single episode, unspecified; I10 Essential (primary) hypertension; I48.91 Unspecified atrial fibrillation; R42 Dizziness and giddiness
CPT/HCPCS: 36415; 70450; 80053; 81001; 85007; 85027; 93005; 96361; 96374; 99285; J2060; J7030; 96375

== ENCOUNTER → 2018-02-19 | Outpatient (CLI) | payer MEDICARE, MEDICAID | END | disposition home or self-care (01) | LOC: XYW 10:20 | PROVIDERS: ATTEND Internal Medicine | DX: R06.02 Shortness of breath (principal); I11.0 Hypertensive heart disease with heart failure; I50.9 Heart failure, unspecified | CPT/HCPCS: 93306 ==

== ENCOUNTER 2018-03-03 10:47 | Inpatient (IN) | payer MEDICARE, MEDICAID ==
[~2018-03-03] VITALS: Ht 177.8 cm; Wt 146.9 kg
[2018-03-03] MEDS ORDERED: LEVETIRACETAM INJ 1,000 MG in D5W 5% 100 ML IV ONE (11:00)
[2018-03-03 11:59] LABS: Hematocrit 44.8 % (41.0-53.0); Mean Corpuscular Hemoglobin 30.4 pg (28.0-32.0); Mean Corpuscular Hgb Conc. 33.4 g/dL (32.0-36.0); Mean Corpuscular Volume 90.9 fL (80.0-100.0); Platelet Count (auto) 154 10^3/uL (140-450); Red Blood Cells 4.92 10^6/uL (4.5-5.90); Red Cell Distribution Width 14.9 % (11.8-14.3)
[2018-03-03 12:06] LABS: Albumin 3.3 g/dL (3.4-5.0); Anion Gap 5 (5-15); Blood Alcohol < 3.0 mg/dL (0-5); Blood Urea Nitrogen 11 mg/dL (7-18); Calcium 8.8 mg/dL (8.5-10.1); Carbon Dioxide 27 mmol/L (21-32); Chloride 106 mmol/L (98-107); Glucose 104 mg/dL (74-106); Potassium 4.2 mmol/L (3.5-5.1); Sodium 138 mmol/L (136-145)
[2018-03-03 12:10] LABS: Alanine Aminotransferase 44 U/L (16-61); Alkaline Phosphatase 52 U/L (45-117); Aspartate Aminotransferase 22 U/L (15-37); Bilirubin, Total 0.5 mg/dL (0.2-1.0); GFR African American 104 mL/min; GFR Non-African American 86 mL/min; Total Protein 7.2 g/dL (6.4-8.2)
[2018-03-03 12:15] LABS: INR 0.99 (0.9-1.15); Partial Thromboplastin Time 29.9 sec (23.78-33.04); Prothrombin Time 10.6 sec (9.27-12.13)
[2018-03-03] MEDS ORDERED: LEVETIRACETAM 500 MG/5ML INJ IV ONE (12:29)
[2018-03-03 12:36] LABS: Band Neutrophils % (manual) 0; Basophils % (manual) 0 (0.0-2.0); Blast Cells 0; Eosinophils % (manual) 0 (0-7); Metamyelocytes % 0; Myelocytes % 0; Promyelocytes % 0; Reactive Lymphocytes 0
[2018-03-03 13:23] LABS: Alcohol, Urine < 3.0 mg/dL (0-5); Amphetamine Screen, Urine NEGATIVE (NEGATIVE); Barbiturate Scree,Urine NEGATIVE (NEGATIVE); Benzodiazephine Screen, Urine NEGATIVE (NEGATIVE); Cannabinoid Screen, Urine NEGATIVE (NEGATIVE); Cocaine Screen, Urine NEGATIVE (NEGATIVE); Opiate Scree,Urine POSITIVE (NEGATIVE); Phencyclidine Screen, Urine NEGATIVE (NEGATIVE)
[2018-03-03 13:41] LABS: Urine Bacteria NONE SEEN /hpf (None Seen); Urine Blood Negative /uL (Negative); Urine Mucus FEW (None Seen); Urine Specific Gravity 1.021 (1.001-1.035); Urine WBC 1 /hpf (0 - 3)
[2018-03-03 14:00] LABS: Lymphocytes % (manual) 8 (10.0-50.0); Monocytes % (manual) 5 (0-12)
[2018-03-03] MEDS ORDERED: LORazepam 2MG/ML-1ML VIAL IV ONE (16:15)
[2018-03-03] MEDS ORDERED: LORazepam 2MG/ML-1ML VIAL ONE (16:17)
[2018-03-03] MEDS ORDERED: ONDANSETRON HCL 4 MG/2 ML VIAL IV PRN (17:00)
[2018-03-03] MEDS ORDERED: ACETAMINOPHEN 325 MG TAB PO PRN (17:00)
[2018-03-03] MEDS ORDERED: IBUPROFEN 600 MG TAB PO PRN (17:00)
[2018-03-03] MEDS ORDERED: NITROGLYCERIN 0.4 MG SL TAB SL PRN (17:00)
[2018-03-03] MEDS ORDERED: CYCLOBENZAPRINE HCL 10 MG TAB PO PRN (17:00)
[2018-03-03] MEDS ORDERED: MORPHINE SULFATE 4 MG/ML SYR/VIAL IV PRN (17:00)
[2018-03-03] MEDS ORDERED: LORazepam 2MG/ML-1ML VIAL IV PRN (17:00)
[2018-03-03] MEDS ORDERED: DOCUSATE SOD 100 MG CAP PO PRN (17:00)
[2018-03-03] MEDS ORDERED: WARFARIN SODIUM 10 MG TAB PO ONE (18:00)
[2018-03-03 21:10] VITALS: BP 137/69
[2018-03-03] MEDS ORDERED: LAMO150T26 PO (21:50)
[2018-03-03 22:00] VITALS: BP 137/69
[2018-03-03] MEDS ORDERED: LEVETIRACETAM 500 MG TAB PO SCH (22:00)
[2018-03-03] MEDS ORDERED: HYDR-4683 GT (22:17)
[2018-03-03] MEDS: LEVETIRACETAM 500 MG TAB PO SCH (22:32)
[2018-03-03] MEDS: HYDROcodone-ACET 5/325MG TAB PO PRN (22:33)
[2018-03-03] MEDS: lamoTRIgine 100 MG TAB PO SCH (22:33)
[2018-03-03] MEDS: BACLOFEN 10 MG TAB PO PRN (22:33)
[2018-03-03] MEDS: SODIUM CHLOR 0.9% PF (SALINE LOCK) 10ML VIAL/SYR IV SCH (22:33)
[2018-03-04] MEDS ORDERED: ENA2.5T PO (00:30)
[2018-03-04 05:00] VITALS: BP 135/69
[2018-03-04 06:07] LABS: INR 1.01 (0.9-1.15); Prothrombin Time 10.8 sec (9.27-12.13)
[2018-03-04 06:13] LABS: Potassium 4.8 mmol/L (3.5-5.1)
[2018-03-04 06:21] LABS: Basophils # (auto) 0 uL; Basophils % (auto) 0.3 % (0.0-2.0); Eosinophils # (auto) 0.1 uL; Hemoglobin 14.9 g/dL (13.5-17.5); Lymphocytes # (auto) 2.3 uL; Mean Corpuscular Hemoglobin 30.1 pg (28.0-32.0); Mean Corpuscular Hgb Conc. 33.1 g/dL (32.0-36.0); Monocytes # (auto) 0.8 uL; Monocytes % (auto) 8.5 % (0.0-12.0); Neutrophils # (auto) 6.3 uL; Neutrophils % (auto) 66.2 % (37.0-80.0); Nucleated Red Blood Cells % 0.1 %; Platelet Count (auto) 156 10^3/uL (140-450); Red Blood Cells 4.94 10^6/uL (4.5-5.90); Red Cell Distribution Width 14.7 % (11.8-14.3); White Blood Cell 9.5 10^3/uL (4.4-10.8)
[2018-03-04 06:24] LABS: Albumin 3.3 g/dL (3.4-5.0); BUN/Creatinine Ratio 12.5; Bilirubin, Total 0.5 mg/dL (0.2-1.0); Calcium 9.1 mg/dL (8.5-10.1)
[2018-03-04] MEDS: SODIUM CHLOR 0.9% PF (SALINE LOCK) 10ML VIAL/SYR IV SCH ×3 (07:25→21:35)
[2018-03-04 08:19] VITALS: BP 123/66
[2018-03-04] MEDS: lamoTRIgine 100 MG TAB PO SCH ×2 (08:56→21:32)
[2018-03-04] MEDS: DIGOXIN 0.25 MG TAB PO SCH (08:56)
[2018-03-04] MEDS: LEVETIRACETAM 500 MG TAB PO SCH ×2 (08:56→21:32)
[2018-03-04] MEDS: MULTIPLE VITAMIN TAB PO SCH (08:57)
[2018-03-04] MEDS: METOPROLOL SUCCINATE XL 50 MG TAB PO SCH (08:57)
[2018-03-04 12:35] VITALS: BP 111/72
[2018-03-04 16:57] VITALS: BP 107/62
[2018-03-04] MEDS ORDERED: WARFARIN SODIUM 10 MG TAB PO ONE (17:00)
[2018-03-04] MEDS: HYDROcodone-ACET 5/325MG TAB PO PRN (21:33)
[2018-03-04] MEDS: BACLOFEN 10 MG TAB PO PRN (21:33)
[2018-03-04 21:55] VITALS: BP 109/58
[2018-03-05 05:38] VITALS: BP 115/74
[2018-03-05] MEDS: SODIUM CHLOR 0.9% PF (SALINE LOCK) 10ML VIAL/SYR IV SCH ×2 (05:52→14:00)
[2018-03-05 05:54] LABS: Hemoglobin 15.3 g/dL (13.5-17.5); Mean Corpuscular Hemoglobin 30.8 pg (28.0-32.0); Mean Corpuscular Volume 90.6 fL (80.0-100.0); Platelet Count (auto) 145 10^3/uL (140-450); Red Blood Cells 4.97 10^6/uL (4.5-5.90)
[2018-03-05 06:08] LABS: INR 1.09 (0.9-1.15); Partial Thromboplastin Time 31.6 sec (23.78-33.04); Prothrombin Time 11.6 sec (9.27-12.13)
[2018-03-05 06:14] LABS: Band Neutrophils % (manual) 0; Basophils % (manual) 0 (0.0-2.0); Blast Cells 0; Metamyelocytes % 0; Myelocytes % 0; Promyelocytes % 0; Reactive Lymphocytes 0
[2018-03-05 06:15] LABS: Potassium 3.9 mmol/L (3.5-5.1)
[2018-03-05 06:21] LABS: BUN/Creatinine Ratio 13.3; Calcium 8.8 mg/dL (8.5-10.1)
[2018-03-05 07:18] LABS: Eosinophils % (manual) 1 (0-7); Lymphocytes % (manual) 27 (10.0-50.0); Monocytes % (manual) 3 (0-12)
[2018-03-05 08:23] VITALS: BP 94/64
[2018-03-05] MEDS: METOPROLOL SUCCINATE XL 50 MG TAB PO SCH (10:00)
[2018-03-05] MEDS: LEVETIRACETAM 500 MG TAB PO SCH (10:03)
[2018-03-05] MEDS: lamoTRIgine 100 MG TAB PO SCH (10:04)
[2018-03-05] MEDS: MULTIPLE VITAMIN TAB PO SCH (10:04)
[2018-03-05] MEDS: DIGOXIN 0.25 MG TAB PO SCH (10:04)
[2018-03-05 12:20] VITALS: BP 118/54
[2018-03-05 12:42] VITALS: BP 118/54
== END 2018-03-05 15:30 | disposition home or self-care (01) | DRG 101 ==
LOC: EDBD 10:47 → ER 10:50 → TELE 17:13 → TELE-WESTW 21:10
PROVIDERS: ADMIT Internal Medicine; ATTEND Internal Medicine
DX: G40.901 Epilepsy, unspecified, not intractable, with status epilepticus (principal); I48.92 Unspecified atrial flutter; D68.69 Other thrombophilia; F05 Delirium due to known physiological condition; I48.91 Unspecified atrial fibrillation; F41.9 Anxiety disorder, unspecified; F32.9 Major depressive disorder, single episode, unspecified; I12.9 Hypertensive chronic kidney disease with stage 1 through stage 4 chronic kidney disease, or unspecified chronic kidney disease; E66.01 Morbid (severe) obesity due to excess calories; G89.4 Chronic pain syndrome; N18.2 Chronic kidney disease, stage 2 (mild); G47.33 Obstructive sleep apnea (adult) (pediatric); F17.200 Nicotine dependence, unspecified, uncomplicated; Z79.01 Long term (current) use of anticoagulants; Z82.49 Family history of ischemic heart disease and other diseases of the circulatory system; Z83.3 Family history of diabetes mellitus; Z88.5 Allergy status to narcotic agent; Z79.899 Other long term (current) drug therapy; Z79.82 Long term (current) use of aspirin; Z79.1 Long term (current) use of non-steroidal anti-inflammatories (NSAID)
CPT/HCPCS: 36415; 70450; 80048; 80053; 80164; 80307; 80320; 81001; 82962; 83735; 85007; 85025; 85027; 85610; 85730; 93886; 94761; 96365; 96375; G0378; J7060

== ENCOUNTER 2018-03-28 10:03 | Inpatient (IN) | payer MEDICARE, MEDICAID | END 2018-03-29 16:35 | disposition home or self-care (01) | LOC: ER 10:03 → WEST WING 16:18 → TELE-WESTW 17:07 ==

== ENCOUNTER 2018-05-10 08:05 | Emergency (ER) | payer MEDICARE, MEDICAID ==
[~2018-05-10] VITALS: Ht 177.8 cm; Wt 136.1 kg
[~2018-05-10 08:05] MED LIST changes: +CEPH250C PO; -CYCL10TA3 PO; -DIVA1TAB59; +DIVA1TAB59 PO; +ENA2.5T PO; -HYDR-4683 PO; -IBUP600T27 PO; -LAM100T OR; +LAMO150T26 PO; -LEVE750T3 PO
[2018-05-10] MEDS ORDERED: LORazepam 2MG/ML-1ML VIAL ONE (08:07)
[2018-05-10] MEDS ORDERED: SODIUM CHLORIDE 0.9% 1,000 ML IV ONE (08:39)
[2018-05-10] MEDS ORDERED: LORazepam 2MG/ML-1ML VIAL IV ONE (08:45)
[2018-05-10 10:16] LABS: Hematocrit 45.5 % (41.0-53.0); Hemoglobin 15.5 g/dL (13.5-17.5); Mean Corpuscular Hemoglobin 30.9 pg (28.0-32.0); Mean Corpuscular Hgb Conc. 33.9 g/dL (32.0-36.0); Mean Corpuscular Volume 90.9 fL (80.0-100.0); Platelet Count (auto) 155 10^3/uL (140-450); Red Blood Cells 5.01 10^6/uL (4.5-5.90); Red Cell Distribution Width 14.5 % (11.8-14.3); White Blood Cell 9.8 10^3/uL (4.4-10.8)
[2018-05-10 10:18] LABS: INR 0.99 (0.9-1.15); Partial Thromboplastin Time 27.5 sec (23.78-33.04); Prothrombin Time 10.6 sec (9.27-12.13)
[2018-05-10 10:22] LABS: Magnesium 2.5 mg/dL (1.6-2.6)
[2018-05-10 10:23] LABS: Albumin 3.3 g/dL (3.4-5.0); Calcium 8.5 mg/dL (8.5-10.1); Potassium 4.1 mmol/L (3.5-5.1)
[2018-05-10 10:25] LABS: BUN/Creatinine Ratio 9.4
[2018-05-10 10:35] LABS: Basophils % (manual) 0 (0.0-2.0); Blast Cells 0; Eosinophils % (manual) 0 (0-7); Metamyelocytes % 0; Myelocytes % 0; Promyelocytes % 0; Reactive Lymphocytes 0
[2018-05-10 10:38] LABS: Bilirubin, Total 0.3 mg/dL (0.2-1.0)
[2018-05-10 10:39] LABS: Digoxin (Lanoxin) < 0.1 ng/mL (0.8-2); Valproic Acid (Depakene) 5 ug/mL (50-100)
[2018-05-10 10:58] LABS: Total Protein 7.3 g/dL (6.4-8.2)
[2018-05-10 10:59] LABS: Band Neutrophils % (manual) 2; Lymphocytes % (manual) 13 (10.0-50.0); Monocytes % (manual) 4 (0-12)
[2018-05-10 14:57] LABS: Urine Amorphous Crystal FEW /hpf (None Seen); Urine Bacteria NONE SEEN /hpf (None Seen); Urine Blood Negative /uL (Negative); Urine Hyaline Cast FEW /lpf (0 - 2); Urine Mucus FEW (None Seen); Urine Specific Gravity 1.021 (1.001-1.035); Urine WBC 2 /hpf (0 - 3)
[2018-05-10 15:40] LABS: Alcohol, Urine < 3.0 mg/dL (0-5); Amphetamine Screen, Urine NEGATIVE (NEGATIVE); Barbiturate Scree,Urine NEGATIVE (NEGATIVE); Benzodiazephine Screen, Urine NEGATIVE (NEGATIVE); Cannabinoid Screen, Urine NEGATIVE (NEGATIVE); Cocaine Screen, Urine NEGATIVE (NEGATIVE); Opiate Scree,Urine NEGATIVE (NEGATIVE); Phencyclidine Screen, Urine NEGATIVE (NEGATIVE)
[2018-05-10] MEDS ORDERED: DIGOXIN 0.25 MG TAB PO ONE (16:15)
[2018-05-10] MEDS ORDERED: LEVETIRACETAM 500 MG TAB PO ONE (16:15)
[2018-05-10 16:51] VITALS: BP 124/75
== END 2018-05-10 16:58 | disposition home or self-care (01) ==
LOC: EDUNIT# 08:05 → EDBD 08:05 → ER 08:05
DX: G40.909 Epilepsy, unspecified, not intractable, without status epilepticus (principal); I10 Essential (primary) hypertension; I48.92 Unspecified atrial flutter; I48.91 Unspecified atrial fibrillation; Z91.14 Patient's other noncompliance with medication regimen
CPT/HCPCS: 36415; 70450; 71045; 80053; 80162; 80164; 80307; 81001; 83735; 84443; 84484; 85007; 85027; 85610; 85730; 94761; 96374; 99284; J2060; J7030

== ENCOUNTER 2018-06-02 18:51 | Emergency (ER) | payer MEDICARE, MEDICAID ==
[~2018-06-02] VITALS: Ht 180.3 cm; Wt 142.9 kg
[2018-06-02] MEDS ORDERED: SODIUM CHLORIDE 0.9% 1,000 ML IVB ONE (19:25)
[2018-06-02] MEDS ORDERED: LEVETIRACETAM INJ 1,000 MG in D5W 5% 100 ML IV ONE (19:30)
[2018-06-02 20:24] LABS: Basophils # (auto) 0 uL; Basophils % (auto) 0.5 % (0.0-2.0); Eosinophils # (auto) 0.1 uL; Eosinophils % (auto) 0.8 % (0.0-7.0); Hematocrit 47.8 % (41.0-53.0); Hemoglobin 15.8 g/dL (13.5-17.5); Lymphocytes # (auto) 1.4 uL; Lymphocytes % (auto) 14.2 % (10.0-50.0); Mean Corpuscular Hemoglobin 30.2 pg (28.0-32.0); Mean Corpuscular Hgb Conc. 33.1 g/dL (32.0-36.0); Mean Corpuscular Volume 91.4 fL (80.0-100.0); Monocytes # (auto) 0.5 uL; Monocytes % (auto) 5.1 % (0.0-12.0); Neutrophils # (auto) 7.8 uL; Neutrophils % (auto) 79.4 % (37.0-80.0); Nucleated Red Blood Cells % 0.1 %; Platelet Count (auto) 175 10^3/uL (140-450); Red Blood Cells 5.23 10^6/uL (4.5-5.90); Red Cell Distribution Width 14.4 % (11.8-14.3); White Blood Cell 9.9 10^3/uL (4.4-10.8)
[2018-06-02] MEDS ORDERED: LORazepam 2MG/ML-1ML VIAL ONE (20:28)
[2018-06-02] MEDS ORDERED: LEVETIRACETAM 500 MG/5ML INJ IV ONE ×2 (20:38→20:39)
[2018-06-02 20:43] LABS: Albumin 3.2 g/dL (3.4-5.0); Calcium 8.8 mg/dL (8.5-10.1); Magnesium 2.2 mg/dL (1.6-2.6); Potassium 4.3 mmol/L (3.5-5.1)
[2018-06-02 20:46] LABS: BUN/Creatinine Ratio 11.7
[2018-06-02 20:49] LABS: Bilirubin, Total 0.3 mg/dL (0.2-1.0); Total Protein 7.4 g/dL (6.4-8.2)
[2018-06-02] MEDS ORDERED: LORazepam 2MG/ML-1ML VIAL IV ONE (21:15)
[2018-06-02 22:22] LABS: Urine Bacteria NONE SEEN /hpf (None Seen); Urine Blood 1+ /uL (Negative); Urine Mucus FEW (None Seen); Urine Specific Gravity 1.021 (1.001-1.035); Urine WBC 1 /hpf (0 - 3)
[2018-06-02 23:30] VITALS: BP 128/71
== END 2018-06-03 00:25 | disposition home or self-care (01) ==
LOC: EDBD 18:51 → ER 18:59 → MERGE 18:59 → ER 06-03 00:25
DX: R56.9 Unspecified convulsions (principal); I48.91 Unspecified atrial fibrillation; I10 Essential (primary) hypertension
CPT/HCPCS: 36415; 80053; 81001; 83735; 85025; 94761; 96365; 96375; 99283; J1953; J2060; J7030; J7060

== ENCOUNTER 2018-07-02 20:26 | Emergency (ER) | payer MEDICARE, MEDICAID ==
[~2018-07-02] VITALS: Ht 177.8 cm; Wt 131.5 kg
[2018-07-02] MEDS ORDERED: LORazepam 2MG/ML-1ML VIAL IV ONE (23:01)
[2018-07-02] MEDS ORDERED: LORazepam 2MG/ML-1ML VIAL ONE (23:02)
[2018-07-02 23:39] LABS: Basophils # (auto) 0.1 uL; Basophils % (auto) 1.2 % (0.0-2.0); Eosinophils # (auto) 0.1 uL; Eosinophils % (auto) 1.6 % (0.0-7.0); Hemoglobin 15.4 g/dL (13.5-17.5); Lymphocytes # (auto) 1.4 uL; Lymphocytes % (auto) 16.5 % (10.0-50.0); Mean Corpuscular Hemoglobin 30.5 pg (28.0-32.0); Mean Corpuscular Hgb Conc. 33.5 g/dL (32.0-36.0); Mean Corpuscular Volume 90.9 fL (80.0-100.0); Monocytes # (auto) 0.7 uL; Monocytes % (auto) 8.1 % (0.0-12.0); Neutrophils # (auto) 6.1 uL; Neutrophils % (auto) 72.6 % (37.0-80.0); Nucleated Red Blood Cells % 0.1 %; Platelet Count (auto) 140 10^3/uL (140-450); Red Blood Cells 5.06 10^6/uL (4.5-5.90); Red Cell Distribution Width 14.9 % (11.8-14.3); White Blood Cell 8.4 10^3/uL (4.4-10.8)
[2018-07-02 23:54] LABS: INR 0.98 (0.9-1.15); Partial Thromboplastin Time 27.5 sec (23.78-33.04); Prothrombin Time 10.5 sec (9.27-12.13)
[2018-07-02 23:58] LABS: Alanine Aminotransferase 49 U/L (16-61); Albumin 3.3 g/dL (3.4-5.0); Anion Gap 7 (5-15); Aspartate Aminotransferase 45 U/L (15-37); BUN/Creatinine Ratio 15.1; Blood Alcohol < 3.0 mg/dL (0-5); Blood Urea Nitrogen 16 mg/dL (7-18); Carbon Dioxide 23 mmol/L (21-32); Chloride 108 mmol/L (98-107); GFR African American 97 mL/min; GFR Non-African American 80 mL/min; Glucose 95 mg/dL (74-106); Potassium 4.9 mmol/L (3.5-5.1); Sodium 138 mmol/L (136-145)
[2018-07-03] LABS: Alkaline Phosphatase 68 U/L (45-117); Bilirubin, Total 0.3 mg/dL (0.2-1.0); Total Protein 7.4 g/dL (6.4-8.2)
[2018-07-03 00:05] LABS: Carbamazepine (Tegretol) < 0.5 ug/mL (4-12); Valproic Acid (Depakene) 4 ug/mL (50-100)
[2018-07-03] MEDS ORDERED: LORazepam 0.5 MG TAB PO ONE (03:30)
[2018-07-03 04:12] VITALS: BP 110/88
== END 2018-07-03 04:29 | disposition home or self-care (01) ==
LOC: EDBD 20:26 → ER 20:29
DX: G40.909 Epilepsy, unspecified, not intractable, without status epilepticus (principal); G47.00 Insomnia, unspecified; F41.9 Anxiety disorder, unspecified; F32.9 Major depressive disorder, single episode, unspecified; I10 Essential (primary) hypertension
CPT/HCPCS: 36415; 70450; 72125; 80053; 80156; 80164; 80320; 82542; 85025; 85610; 85730; 93005; 96374; 99284; J2060

== ENCOUNTER 2018-10-17 08:49 | Inpatient (IN) | payer OTHER, MEDICAID | END 2018-10-18 17:00 | disposition home or self-care (01) | LOC: ER 08:49 → TELE 08:50 → TELE-WESTW 17:27 | DX: G40.909 Epilepsy, unspecified, not intractable, without status epilepticus (principal); G93.41 Metabolic encephalopathy; I10 Essential (primary) hypertension ==

== ENCOUNTER 2018-11-21 19:35 | Emergency (ER) | payer OTHER, MEDICAID ==
[~2018-11-21] VITALS: Ht 175.3 cm; Wt 136.1 kg
[~2018-11-21 19:35] MED LIST changes: -CEPH250C PO; -DIGO1TAB37 PO; -DIVA1TAB59 PO; -ENA2.5T PO; +ENAL2.5T2 PO; -METO-169; -NAP500T PO; +WARF1TAB36 PO; -WARF7.5T20
[2018-11-21 20:38] LABS: Hematocrit 46.6 % (41.0-53.0); Mean Corpuscular Hemoglobin 30.5 pg (28.0-32.0); Mean Corpuscular Hgb Conc. 34.3 g/dL (32.0-36.0); Mean Corpuscular Volume 88.8 fL (80.0-100.0); Platelet Count (auto) 157 10^3/uL (140-450); Red Blood Cells 5.24 10^6/uL (4.5-5.90); Red Cell Distribution Width 15.2 % (11.8-14.3); White Blood Cell 10.7 10^3/uL (4.4-10.8)
[2018-11-21 20:45] LABS: Basophils % (manual) 0 (0.0-2.0); Blast Cells 0; Eosinophils % (manual) 0 (0-7); Myelocytes % 0; Promyelocytes % 0; Reactive Lymphocytes 0
[2018-11-21 20:59] LABS: Albumin 3.5 g/dL (3.4-5.0); BUN/Creatinine Ratio 11.1; Calcium 8.9 mg/dL (8.5-10.1)
[2018-11-21 21:01] LABS: Band Neutrophils % (manual) 2; Lymphocytes % (manual) 17 (10.0-50.0); Metamyelocytes % 1; Monocytes % (manual) 5 (0-12)
[2018-11-21 21:02] LABS: Bilirubin, Total 0.3 mg/dL (0.2-1.0); Total Protein 7.5 g/dL (6.4-8.2)
[2018-11-21] MEDS ORDERED: LORazepam 2MG/ML-1ML VIAL ONE (22:11)
[2018-11-21] MEDS ORDERED: LEVETIRACETAM INJ 1,000 MG in D5W 5% 100 ML IV ONE (23:00)
[2018-11-21] MEDS ORDERED: LEVETIRACETAM 500 MG/5ML INJ IV ONE (23:05)
[2018-11-22 00:27] LABS: INR 2.37 (0.9-1.15); Partial Thromboplastin Time 40.9 sec (23.64-32.05)
[2018-11-22 03:15] VITALS: BP 115/63
[2018-11-22 04:54] LABS: Urine Bacteria NONE SEEN /hpf (None Seen); Urine Blood Negative /uL (Negative); Urine Mucus FEW (None Seen); Urine WBC 1 /hpf (0 - 3)
[2018-11-22 05:00] LABS: Alcohol, Urine < 3.0 mg/dL (0-5); Amphetamine Screen, Urine NEGATIVE (NEGATIVE); Barbiturate Scree,Urine NEGATIVE (NEGATIVE); Benzodiazephine Screen, Urine NEGATIVE (NEGATIVE); Cannabinoid Screen, Urine NEGATIVE (NEGATIVE); Cocaine Screen, Urine NEGATIVE (NEGATIVE); Opiate Scree,Urine NEGATIVE (NEGATIVE); Phencyclidine Screen, Urine NEGATIVE (NEGATIVE)
== END 2018-11-22 04:06 | disposition home or self-care (01) ==
LOC: EDBD 19:35 → ER 19:39
DX: R41.82 Altered mental status, unspecified (principal); R41.0 Disorientation, unspecified; G40.309 Generalized idiopathic epilepsy and epileptic syndromes, not intractable, without status epilepticus; I48.91 Unspecified atrial fibrillation; I10 Essential (primary) hypertension; Z88.0 Allergy status to penicillin; Z88.1 Allergy status to other antibiotic agents; Z88.5 Allergy status to narcotic agent; Z88.8 Allergy status to other drugs, medicaments and biological substances; Z79.01 Long term (current) use of anticoagulants; Z79.899 Other long term (current) drug therapy
CPT/HCPCS: 36415; 70450; 80053; 80307; 80320; 81001; 85007; 85027; 85610; 85730; 96365; 96375; 99284; J1953; J2060; J7060

== ENCOUNTER 2019-01-09 09:35 | Emergency (ER) | payer OTHER, MEDICAID ==
[~2019-01-09] VITALS: Ht 182.9 cm; Wt 131.5 kg
[2019-01-09 11:04] LABS: Hematocrit 47.1 % (41.0-53.0); Hemoglobin 15.9 g/dL (13.5-17.5); Mean Corpuscular Hemoglobin 30.2 pg (28.0-32.0); Mean Corpuscular Hgb Conc. 33.7 g/dL (32.0-36.0); Mean Corpuscular Volume 89.5 fL (80.0-100.0); Platelet Count (auto) 149 10^3/uL (140-450); Red Blood Cells 5.26 10^6/uL (4.5-5.90); White Blood Cell 8.6 10^3/uL (4.4-10.8)
[2019-01-09 11:05] LABS: Band Neutrophils % (manual) 0; Basophils % (manual) 0 (0.0-2.0); Blast Cells 0; Metamyelocytes % 0; Myelocytes % 0; Promyelocytes % 0
[2019-01-09 11:27] LABS: Albumin 3.3 g/dL (3.4-5.0); Calcium 9.4 mg/dL (8.5-10.1); Potassium 4.5 mmol/L (3.5-5.1)
[2019-01-09 11:29] LABS: BUN/Creatinine Ratio 10.3; Bilirubin, Total 0.5 mg/dL (0.2-1.0); Total Protein 7.5 g/dL (6.4-8.2)
[2019-01-09 11:45] LABS: Eosinophils % (manual) 5 (0-7); Lymphocytes % (manual) 10 (10.0-50.0); Monocytes % (manual) 9 (0-12); Reactive Lymphocytes 2
[2019-01-09] MEDS ORDERED: LEVETIRACETAM 500 MG TAB PO ONE (11:45)
[2019-01-09] MEDS ORDERED: LORazepam 0.5 MG TAB PO ONE (11:45)
[2019-01-09 13:01] VITALS: BP 162/101
[2019-01-09 14:02] LABS: Urine Bacteria NONE SEEN /hpf (None Seen); Urine Blood Negative /uL (Negative); Urine Hyaline Cast FEW /lpf (0 - 2); Urine Mucus FEW (None Seen); Urine Specific Gravity 1.027 (1.001-1.035); Urine WBC 1 /hpf (0 - 3)
== END 2019-01-09 14:40 | disposition home or self-care (01) ==
LOC: ER 09:35 → EDBD 09:35 → ER 14:40
DX: G40.909 Epilepsy, unspecified, not intractable, without status epilepticus (principal); E66.01 Morbid (severe) obesity due to excess calories; I48.91 Unspecified atrial fibrillation; I10 Essential (primary) hypertension
CPT/HCPCS: 36415; 70450; 80053; 80164; 81001; 82542; 85007; 85027; 93005; 94761

== ENCOUNTER 2019-02-10 01:19 | Emergency (ER) | payer OTHER, MEDICAID ==
[~2019-02-10] VITALS: Ht 162.6 cm; Wt 158.8 kg
[2019-02-10] MEDS ORDERED: LEVETIRACETAM INJ 1,000 MG in D5W 5% 100 ML IV ONE (01:30)
[2019-02-10 01:51] LABS: Basophils # (auto) 0.1 uL; Basophils % (auto) 0.6 % (0.0-2.0); Eosinophils # (auto) 0.3 uL; Eosinophils % (auto) 2.9 % (0.0-7.0); Hematocrit 45.5 % (41.0-53.0); Hemoglobin 15.4 g/dL (13.5-17.5); Lymphocytes # (auto) 1.7 uL; Lymphocytes % (auto) 16.7 % (10.0-50.0); Mean Corpuscular Hemoglobin 30.1 pg (28.0-32.0); Mean Corpuscular Hgb Conc. 33.7 g/dL (32.0-36.0); Mean Corpuscular Volume 89.1 fL (80.0-100.0); Monocytes # (auto) 0.8 uL; Monocytes % (auto) 7.7 % (0.0-12.0); Neutrophils # (auto) 7.2 uL; Neutrophils % (auto) 72.1 % (37.0-80.0); Platelet Count (auto) 146 10^3/uL (140-450); Red Blood Cells 5.11 10^6/uL (4.5-5.90); Red Cell Distribution Width 14.8 % (11.8-14.3)
[2019-02-10] MEDS ORDERED: LEVETIRACETAM 500 MG/5ML INJ IV ONE (02:02)
[2019-02-10 02:12] LABS: Albumin 3.2 g/dL (3.4-5.0); BUN/Creatinine Ratio 11.1
[2019-02-10 02:15] LABS: Bilirubin, Total 0.3 mg/dL (0.2-1.0); Total Protein 7.2 g/dL (6.4-8.2)
[2019-02-10] MEDS ORDERED: LORazepam 2MG/ML-1ML VIAL ONE (05:54)
[2019-02-10] MEDS ORDERED: LORazepam 2MG/ML-1ML VIAL IV ONE (06:00)
[2019-02-10] MEDS ORDERED: SODIUM CHLORIDE 0.9% 1,000 ML IV ONE (07:30)
[2019-02-10 09:57] VITALS: BP 127/78
== END 2019-02-10 10:21 | disposition home or self-care (01) ==
LOC: EDBD 01:19 → ER 01:22
DX: G40.909 Epilepsy, unspecified, not intractable, without status epilepticus (principal); E66.01 Morbid (severe) obesity due to excess calories; I10 Essential (primary) hypertension; Z68.44 Body mass index [BMI] 60.0-69.9, adult
CPT/HCPCS: 36415; 70450; 80053; 82542; 85025; 96365; 96375; 99284; J1953; J2060; J7030; J7060

== ENCOUNTER 2019-03-14 08:29 | Emergency (ER) | payer OTHER, MEDICAID ==
[~2019-03-14] VITALS: Ht 182.9 cm; Wt 136.1 kg
[2019-03-14 09:39] LABS: Basophils # (auto) 0 uL; Basophils % (auto) 0.6 % (0.0-2.0); Eosinophils # (auto) 0.1 uL; Eosinophils % (auto) 1.4 % (0.0-7.0); Hematocrit 46.2 % (41.0-53.0); Hemoglobin 15.8 g/dL (13.5-17.5); Lymphocytes # (auto) 1.2 uL; Lymphocytes % (auto) 14.2 % (10.0-50.0); Mean Corpuscular Hemoglobin 30.4 pg (28.0-32.0); Mean Corpuscular Hgb Conc. 34.3 g/dL (32.0-36.0); Mean Corpuscular Volume 88.6 fL (80.0-100.0); Monocytes # (auto) 0.5 uL; Monocytes % (auto) 6.3 % (0.0-12.0); Neutrophils # (auto) 6.5 uL; Neutrophils % (auto) 77.5 % (37.0-80.0); Nucleated Red Blood Cells % 0.1 %; Platelet Count (auto) 130 10^3/uL (140-450); Red Blood Cells 5.22 10^6/uL (4.5-5.90); White Blood Cell 8.3 10^3/uL (4.4-10.8)
[2019-03-14] MEDS ORDERED: SODIUM CHLORIDE 0.9% 1,000 ML IV ONE (09:58)
[2019-03-14] MEDS ORDERED: LORazepam 2MG/ML-1ML VIAL IV ONE (10:00)
[2019-03-14 10:17] LABS: Albumin 3.3 g/dL (3.4-5.0); Anion Gap 4 (5-15); Blood Alcohol < 3.0 mg/dL (0-5); Carbon Dioxide 27 mmol/L (21-32); Chloride 109 mmol/L (98-107); Glucose 111 mg/dL (74-106); Potassium 4.3 mmol/L (3.5-5.1); Sodium 140 mmol/L (136-145)
[2019-03-14 10:22] LABS: Alanine Aminotransferase 42 U/L (16-61); Alkaline Phosphatase 61 U/L (45-117); Aspartate Aminotransferase 22 U/L (15-37); Bilirubin, Total 0.3 mg/dL (0.2-1.0); GFR African American 83 mL/min; GFR Non-African American 69 mL/min; Total Protein 7.3 g/dL (6.4-8.2)
[2019-03-14 11:05] LABS: BUN/Creatinine Ratio 10.7; Blood Urea Nitrogen 13 mg/dL (7-18)
[2019-03-14 11:30] LABS: INR 3.12 (0.9-1.15); Partial Thromboplastin Time 44.2 sec (23.64-32.05)
[2019-03-14 12:54] LABS: Alcohol, Urine < 3.0 mg/dL (0-5); Amphetamine Screen, Urine NEGATIVE (NEGATIVE); Barbiturate Scree,Urine NEGATIVE (NEGATIVE); Benzodiazephine Screen, Urine NEGATIVE (NEGATIVE); Cannabinoid Screen, Urine NEGATIVE (NEGATIVE); Cocaine Screen, Urine NEGATIVE (NEGATIVE); Opiate Scree,Urine NEGATIVE (NEGATIVE); Phencyclidine Screen, Urine NEGATIVE (NEGATIVE)
[2019-03-14 12:59] LABS: Urine Bacteria NONE SEEN /hpf (None Seen); Urine Blood TRACE /uL (Negative); Urine Mucus FEW (None Seen); Urine Specific Gravity 1.025 (1.001-1.035); Urine WBC 1 /hpf (0 - 3)
[2019-03-14] MEDS ORDERED: LEVETIRACETAM 500 MG TAB PO ONE (15:00)
[2019-03-14 16:45] VITALS: BP 114/58
== END 2019-03-14 18:23 | disposition home or self-care (01) ==
LOC: EDBD 08:29 → ER 08:33
DX: G40.909 Epilepsy, unspecified, not intractable, without status epilepticus (principal); T45.515A Adverse effect of anticoagulants, initial encounter; E44.1 Mild protein-calorie malnutrition; I10 Essential (primary) hypertension; Z68.41 Body mass index [BMI] 40.0-44.9, adult; Y92.9 Unspecified place or not applicable
CPT/HCPCS: 36415; 71046; 80053; 80307; 80320; 81001; 82542; 83735; 85025; 85610; 85730; 93005; 96361; 96374; 99284; J2060; J7030

== ENCOUNTER 2019-04-13 13:04 | Emergency (ER) | payer OTHER, MEDICAID ==
[~2019-04-13] VITALS: Ht 182.9 cm; Wt 139.7 kg
[2019-04-13] MEDS ORDERED: SODIUM CHLORIDE 0.9% 1,000 ML IV ONE (13:35)
[2019-04-13 13:55] LABS: Hematocrit 49.1 % (41.0-53.0); Hemoglobin 16.6 g/dL (13.5-17.5); Mean Corpuscular Hgb Conc. 33.9 g/dL (32.0-36.0); Mean Corpuscular Volume 88.6 fL (80.0-100.0); Platelet Count (auto) 159 10^3/uL (140-450); Red Blood Cells 5.54 10^6/uL (4.5-5.90); Red Cell Distribution Width 15.3 % (11.8-14.3); White Blood Cell 9.1 10^3/uL (4.4-10.8)
[2019-04-13] MEDS ORDERED: LORazepam 2MG/ML-1ML VIAL ONE (13:57)
[2019-04-13 14:11] LABS: Basophils % (manual) 0 (0.0-2.0); Blast Cells 0; Eosinophils % (manual) 0 (0-7); Metamyelocytes % 0; Myelocytes % 0; Promyelocytes % 0; Reactive Lymphocytes 0
[2019-04-13 14:13] LABS: Albumin 3.5 g/dL (3.4-5.0); Anion Gap 5 (5-15); Blood Urea Nitrogen 12 mg/dL (7-18); Calcium 9.1 mg/dL (8.5-10.1); Carbon Dioxide 25 mmol/L (21-32); Chloride 107 mmol/L (98-107); Glucose 117 mg/dL (74-106); Potassium 4.7 mmol/L (3.5-5.1); Sodium 137 mmol/L (136-145)
[2019-04-13] MEDS ORDERED: LEVETIRACETAM INJ 1,000 MG in D5W 5% 100 ML IV ONE (14:15)
[2019-04-13] MEDS ORDERED: LORazepam 2MG/ML-1ML VIAL IV ONE (14:15)
[2019-04-13 14:18] LABS: Alanine Aminotransferase 36 U/L (16-61); Alkaline Phosphatase 68 U/L (45-117); Aspartate Aminotransferase 21 U/L (15-37); BUN/Creatinine Ratio 8.9; Bilirubin, Total 0.4 mg/dL (0.2-1.0); GFR African American 73 mL/min; GFR Non-African American 60 mL/min; Total Protein 7.8 g/dL (6.4-8.2)
[2019-04-13 14:31] LABS: Band Neutrophils % (manual) 2; Lymphocytes % (manual) 13 (10.0-50.0); Monocytes % (manual) 6 (0-12)
[2019-04-13 16:14] VITALS: BP 121/95
== END 2019-04-13 16:14 | disposition home or self-care (01) ==
LOC: EDBD 13:04 → ER 13:26
DX: G40.909 Epilepsy, unspecified, not intractable, without status epilepticus (principal); E66.01 Morbid (severe) obesity due to excess calories; Z68.41 Body mass index [BMI] 40.0-44.9, adult
CPT/HCPCS: 36415; 71046; 80053; 84484; 85007; 85027; 96365; 96366; 96375; 99284; J1953; J2060; J7030; J7060

== ENCOUNTER 2019-04-30 19:00 | Emergency (ER) | payer OTHER, MEDICAID ==
[~2019-04-30] VITALS: Ht 177.8 cm; Wt 145.1 kg
[2019-04-30] MEDS ORDERED: LEVETIRACETAM INJ 1,000 MG in D5W 5% 100 ML IV ONE (19:30)
[2019-04-30 19:59] LABS: Mean Corpuscular Hemoglobin 30.4 pg (28.0-32.0)
[2019-04-30 20:02] LABS: Hemoglobin 15.8 g/dL (13.5-17.5)
[2019-04-30 20:05] LABS: Hematocrit 46.5 % (41.0-53.0); Mean Corpuscular Hgb Conc. 34.1 g/dL (32.0-36.0); Mean Corpuscular Volume 89.3 fL (80.0-100.0); Platelet Count (auto) 145 10^3/uL (140-450); Red Cell Distribution Width 15.2 % (11.8-14.3); White Blood Cell 9.1 10^3/uL (4.4-10.8)
[2019-04-30 20:09] LABS: Basophils % (manual) 0 (0.0-2.0); Blast Cells 0; Eosinophils % (manual) 0 (0-7); Myelocytes % 0; Promyelocytes % 0
[2019-04-30 20:15] LABS: Albumin 3.5 g/dL (3.4-5.0); Calcium 9.3 mg/dL (8.5-10.1); Potassium 4.6 mmol/L (3.5-5.1)
[2019-04-30 20:18] LABS: BUN/Creatinine Ratio 10.9; Bilirubin, Total 0.3 mg/dL (0.2-1.0); Total Protein 7.6 g/dL (6.4-8.2)
[2019-04-30] MEDS ORDERED: LORazepam 2MG/ML-1ML VIAL ONE ×2 (20:26→20:32)
[2019-04-30] MEDS ORDERED: ONDANSETRON HCL 4 MG/2 ML VIAL ONE (20:29)
[2019-04-30] MEDS ORDERED: ONDANSETRON HCL 4 MG/2 ML VIAL IV ONE (20:30)
[2019-04-30 20:49] LABS: Band Neutrophils % (manual) 7; Lymphocytes % (manual) 14 (10.0-50.0); Metamyelocytes % 2; Monocytes % (manual) 10 (0-12); Reactive Lymphocytes 1
[2019-04-30 22:01] VITALS: BP 118/60
[2019-04-30] MEDS ORDERED: LORazepam 2MG/ML-1ML VIAL IV ONE ×2 (22:30)
== END 2019-04-30 23:22 | disposition home or self-care (01) ==
LOC: ER 19:00 → EDBD 19:00 → EDSEX 19:00 → ER 23:22
DX: G40.901 Epilepsy, unspecified, not intractable, with status epilepticus (principal); E66.01 Morbid (severe) obesity due to excess calories; I48.91 Unspecified atrial fibrillation; I10 Essential (primary) hypertension
CPT/HCPCS: 36415; 70450; 80053; 85007; 85027; 96365; 96375; 99291; J1953; J2060; J2405; J7060

== ENCOUNTER 2019-06-14 21:10 | Emergency (ER) | payer OTHER, MEDICAID ==
[~2019-06-14] VITALS: Ht 180.3 cm; Wt 136.1 kg
[2019-06-14] MEDS ORDERED: LORazepam 2MG/ML-1ML VIAL ONE (22:30)
[2019-06-14 22:37] LABS: Albumin 3.4 g/dL (3.4-5.0); Basophils # (auto) 0.1 10 ^3/uL (0-0.2); Basophils % (auto) 0.7 % (0.0-2.0); Calcium 9.2 mg/dL (8.5-10.1); Eosinophils # (auto) 0.1 10 ^3/uL (0-0.8); Hematocrit 45.8 % (41.0-53.0); Hemoglobin 15.6 g/dL (13.5-17.5); Lymphocytes # (auto) 1.5 10 ^3/uL (0.4-5.4); Lymphocytes % (auto) 19.5 % (10.0-50.0); Mean Corpuscular Hemoglobin 30.8 pg (28.0-32.0); Mean Corpuscular Volume 90.8 fL (80.0-100.0); Monocytes # (auto) 0.6 10 ^3/uL (0-1.3); Monocytes % (auto) 7.3 % (0.0-12.0); Neutrophils # (auto) 5.7 10 ^3/uL (1.6-8.6); Neutrophils % (auto) 71.5 % (37.0-80.0); Nucleated Red Blood Cells % 0.3 %; Platelet Count (auto) 143 10^3/uL (140-450); Potassium 3.9 mmol/L (3.5-5.1); Red Blood Cells 5.04 10^6/uL (4.5-5.90); Red Cell Distribution Width 15.4 % (11.8-14.3); White Blood Cell 7.9 10^3/uL (4.4-10.8)
[2019-06-14 22:42] LABS: BUN/Creatinine Ratio 10.5; Bilirubin, Total 0.6 mg/dL (0.2-1.0); Total Protein 7.7 g/dL (6.4-8.2)
[2019-06-14] MEDS ORDERED: LORazepam 2MG/ML-1ML VIAL IV ONE (23:30)
[2019-06-15 00:52] LABS: Urine Bacteria FEW /hpf (None Seen); Urine Blood TRACE /uL (Negative); Urine Hyaline Cast FEW /lpf (0 - 2); Urine Mucus FEW (None Seen); Urine Specific Gravity 1.032 (1.001-1.035); Urine WBC 1 /hpf (0 - 3); Urine WBC Clumps PRESENT /hpf (None Seen)
[2019-06-15 01:03] LABS: Amphetamine Screen, Urine NEGATIVE (NEGATIVE); Barbiturate Scree,Urine NEGATIVE (NEGATIVE); Benzodiazephine Screen, Urine NEGATIVE (NEGATIVE); Cannabinoid Screen, Urine NEGATIVE (NEGATIVE); Cocaine Screen, Urine NEGATIVE (NEGATIVE); Opiate Scree,Urine NEGATIVE (NEGATIVE); Phencyclidine Screen, Urine NEGATIVE (NEGATIVE)
[2019-06-15] MEDS ORDERED: levETIRAcetam 500 MG/5ML INJ IV ONE (02:14)
[2019-06-15] MEDS ORDERED: SODIUM CHLORIDE 0.9% 1,000 ML IV ONE (04:15)
[2019-06-15 05:00] VITALS: BP 122/54
== END 2019-06-15 05:50 | disposition home or self-care (01) ==
LOC: EDBD 21:10 → ER 21:27
DX: R56.9 Unspecified convulsions (principal); E66.01 Morbid (severe) obesity due to excess calories; I10 Essential (primary) hypertension; I48.91 Unspecified atrial fibrillation; Z68.41 Body mass index [BMI] 40.0-44.9, adult
CPT/HCPCS: 36415; 70450; 80053; 80307; 81001; 85025; 93005; 96361; 96365; 96374; 99285; J1953; J2060; J7030; J7060

== ENCOUNTER 2019-08-07 23:21 | Emergency (ER) | payer OTHER, MEDICAID ==
[~2019-08-07] VITALS: Ht 170.2 cm; Wt 158.8 kg
[~2019-08-07 23:21] MED LIST changes: +ENAL2.5T11 PO; -ENAL2.5T2 PO
[2019-08-08] MEDS ORDERED: LORazepam 2MG/ML-1ML VIAL ONE (00:10)
[2019-08-08] MEDS ORDERED: LORazepam 2MG/ML-1ML VIAL IM ONE (00:15)
[2019-08-08 00:16] LABS: Hematocrit 47.8 % (41.0-53.0); Hemoglobin 15.6 g/dL (13.5-17.5); Mean Corpuscular Hemoglobin 29.9 pg (28.0-32.0); Mean Corpuscular Hgb Conc. 32.7 g/dL (32.0-36.0); Mean Corpuscular Volume 91.3 fL (80.0-100.0); Platelet Count (auto) 168 10^3/uL (140-450); Red Blood Cells 5.24 10^6/uL (4.5-5.90); Red Cell Distribution Width 14.6 % (11.8-14.3); White Blood Cell 9.5 10^3/uL (4.4-10.8)
[2019-08-08 00:26] LABS: Basophils % (manual) 0 (0.0-2.0); Blast Cells 0; Metamyelocytes % 0; Myelocytes % 0; Promyelocytes % 0; Reactive Lymphocytes 0
[2019-08-08 00:32] LABS: Albumin 3.3 g/dL (3.4-5.0); BUN/Creatinine Ratio 10.1; Calcium 8.9 mg/dL (8.5-10.1); Potassium 4.2 mmol/L (3.5-5.1)
[2019-08-08 00:35] LABS: Bilirubin, Total 0.3 mg/dL (0.2-1.0); Total Protein 7.6 g/dL (6.4-8.2)
[2019-08-08 00:57] LABS: Band Neutrophils % (manual) 3; Eosinophils % (manual) 2 (0-7); Lymphocytes % (manual) 20 (10.0-50.0); Monocytes % (manual) 6 (0-12)
[2019-08-08] MEDS ORDERED: levETIRAcetam 500 MG/5ML INJ IV ONE (01:15)
[2019-08-08] MEDS ORDERED: SODIUM CHLORIDE 0.9% 1,000 ML IV ONE (02:30)
[2019-08-08 03:51] LABS: Alcohol, Urine < 3.0 mg/dL (0-5); Amphetamine Screen, Urine NEGATIVE (NEGATIVE); Barbiturate Scree,Urine NEGATIVE (NEGATIVE); Benzodiazephine Screen, Urine NEGATIVE (NEGATIVE); Cannabinoid Screen, Urine NEGATIVE (NEGATIVE); Cocaine Screen, Urine NEGATIVE (NEGATIVE); Opiate Scree,Urine NEGATIVE (NEGATIVE); Phencyclidine Screen, Urine NEGATIVE (NEGATIVE)
[2019-08-08 06:00] VITALS: BP 108/62
== END 2019-08-08 06:52 | disposition home or self-care (01) ==
LOC: ER 23:21 → EDBD 23:21 → ER 08-08 06:52
DX: G40.909 Epilepsy, unspecified, not intractable, without status epilepticus (principal); R41.82 Altered mental status, unspecified; I10 Essential (primary) hypertension; I48.91 Unspecified atrial fibrillation
CPT/HCPCS: 36415; 70450; 72125; 80053; 80307; 82542; 85007; 85027; 96361; 96365; 96372; 99285; J1953; J2060; J7030; J7060

== ENCOUNTER → 2019-08-27 | Emergency (ER) | payer OTHER, MEDICAID ==
[~2019-08-27] VITALS: Ht 177.8 cm; Wt 158.8 kg
[~2019-08-27] MED LIST changes: -ENAL2.5T11 PO; +ENAL2.5T2 PO; +SODIUM CHLORIDE 0.9% 1,000 ML IV ONE
[2019-08-27 11:11] VITALS: BP 168/78
[2019-08-27 11:32] LABS: Basophils # (auto) 0 10 ^3/uL (0-0.2); Basophils % (auto) 0.5 % (0.0-2.0); Eosinophils # (auto) 0.1 10 ^3/uL (0-0.8); Eosinophils % (auto) 1.4 % (0.0-7.0); Hematocrit 46.9 % (41.0-53.0); Hemoglobin 15.5 g/dL (13.5-17.5); Lymphocytes % (auto) 12.5 % (10.0-50.0); Mean Corpuscular Hgb Conc. 33.1 g/dL (32.0-36.0); Mean Corpuscular Volume 90.6 fL (80.0-100.0); Monocytes # (auto) 0.5 10 ^3/uL (0-1.3); Monocytes % (auto) 6.3 % (0.0-12.0); Neutrophils # (auto) 6.2 10 ^3/uL (1.6-8.6); Neutrophils % (auto) 79.3 % (37.0-80.0); Platelet Count (auto) 140 10^3/uL (140-450); Red Blood Cells 5.18 10^6/uL (4.5-5.90); Red Cell Distribution Width 14.8 % (11.8-14.3); White Blood Cell 7.8 10^3/uL (4.4-10.8)
[2019-08-27 11:34] LABS: Albumin 3.2 g/dL (3.4-5.0); Anion Gap 5 (5-15); Blood Urea Nitrogen 10 mg/dL (7-18); Calcium 8.9 mg/dL (8.5-10.1); Carbon Dioxide 25 mmol/L (21-32); Chloride 107 mmol/L (98-107); Glucose 111 mg/dL (74-106); Potassium 4.2 mmol/L (3.5-5.1); Sodium 137 mmol/L (136-145)
[2019-08-27 11:39] LABS: Alanine Aminotransferase 39 U/L (16-61); Alkaline Phosphatase 60 U/L (45-117); Aspartate Aminotransferase 19 U/L (15-37); BUN/Creatinine Ratio 7.4; Bilirubin, Total 0.4 mg/dL (0.2-1.0); GFR African American 73 mL/min; GFR Non-African American 60 mL/min; Total Protein 7.2 g/dL (6.4-8.2)
[2019-08-27 12:37] LABS: Urine WBC None Seen /hpf (0 - 3)
[2019-08-27 13:13] LABS: Urine Bacteria FEW /hpf (None Seen); Urine Blood Negative /uL (Negative); Urine Hyaline Cast FEW /lpf (0 - 2); Urine Mucus FEW (None Seen); Urine Specific Gravity 1.025 (1.001-1.035)
== END | disposition home or self-care (01) ==
LOC: EDUNIT# 10:12 → EDBD 10:23 → ER 10:23
DX: G40.909 Epilepsy, unspecified, not intractable, without status epilepticus (principal); I10 Essential (primary) hypertension; E66.01 Morbid (severe) obesity due to excess calories; I48.91 Unspecified atrial fibrillation
CPT/HCPCS: 36415; 70450; 80053; 81001; 84484; 85025

== ENCOUNTER 2019-09-10 20:18 | Emergency (ER) | payer OTHER, MEDICAID ==
[~2019-09-10] VITALS: Ht 182.9 cm; Wt 161.0 kg
[~2019-09-10 20:18] MED LIST changes: +ENAL2.5T11 PO; -ENAL2.5T2 PO; +LORazepam 2MG/ML-1ML VIAL IV ONE; -SODIUM CHLORIDE 0.9% 1,000 ML IV ONE
[2019-09-10] MEDS ORDERED: SODIUM CHLORIDE 0.9% 1,000 ML IVB ONE (20:26)
[2019-09-10] MEDS ORDERED: LORazepam 2MG/ML-1ML VIAL IV ONE ×2 (20:30→23:30)
[2019-09-10] MEDS ORDERED: levETIRAcetam 500 MG/5ML INJ IV ONE (21:31)
[2019-09-10 22:16] LABS: Hematocrit 46.8 % (41.0-53.0); Hemoglobin 15.7 g/dL (13.5-17.5); Mean Corpuscular Hemoglobin 30.2 pg (28.0-32.0); Mean Corpuscular Hgb Conc. 33.6 g/dL (32.0-36.0); Mean Corpuscular Volume 89.9 fL (80.0-100.0); Platelet Count (auto) 147 10^3/uL (140-450); Red Cell Distribution Width 14.6 % (11.8-14.3); White Blood Cell 11.4 10^3/uL (4.4-10.8)
[2019-09-10 22:26] LABS: Band Neutrophils % (manual) 0; Basophils % (manual) 0 (0.0-2.0); Blast Cells 0; Eosinophils % (manual) 0 (0-7); Metamyelocytes % 0; Myelocytes % 0; Promyelocytes % 0; Reactive Lymphocytes 0
[2019-09-10 22:36] LABS: Chloride 106 mmol/L (98-107); Potassium 4.1 mmol/L (3.5-5.1); Sodium 138 mmol/L (136-145)
[2019-09-10 22:37] LABS: Lymphocytes % (manual) 11 (10.0-50.0); Monocytes % (manual) 7 (0-12)
[2019-09-10 22:40] LABS: Albumin 3.3 g/dL (3.4-5.0); Anion Gap 8 (5-15); BUN/Creatinine Ratio 10.7; Blood Urea Nitrogen 13 mg/dL (7-18); Calcium 8.9 mg/dL (8.5-10.1); Carbon Dioxide 24 mmol/L (21-32); GFR African American 82 mL/min; GFR Non-African American 68 mL/min; Glucose 115 mg/dL (74-106)
[2019-09-10 22:43] LABS: Alanine Aminotransferase 38 U/L (16-61); Alkaline Phosphatase 65 U/L (45-117); Aspartate Aminotransferase 23 U/L (15-37); Bilirubin, Total 0.4 mg/dL (0.2-1.0); Total Protein 7.8 g/dL (6.4-8.2)
[2019-09-10 22:44] LABS: Blood Alcohol < 3.0 mg/dL (0-5)
[2019-09-11] MEDS ORDERED: HYDROcodone-ACET 10/325MG TAB PO ONE (04:30)
[2019-09-11 07:41] VITALS: BP 118/75
== END 2019-09-11 09:28 | disposition home or self-care (01) ==
LOC: EDBD 20:18 → ER 20:21
DX: R56.9 Unspecified convulsions (principal); I10 Essential (primary) hypertension; F41.9 Anxiety disorder, unspecified
CPT/HCPCS: 36415; 70450; 70486; 73560; 80053; 80320; 83735; 85007; 85027; 96374; 99291; J1953; J2060; J7060

== ENCOUNTER 2019-10-12 11:52 | Emergency (ER) | payer OTHER, MEDICAID ==
[~2019-10-12] VITALS: Ht 180.3 cm; Wt 117.9 kg
[~2019-10-12 11:52] MED LIST changes: -ENAL2.5T11 PO; +ENAL2.5T2 PO; -LORazepam 2MG/ML-1ML VIAL IV ONE
[2019-10-12] MEDS ORDERED: levETIRAcetam 500 MG TAB PO ONE (12:15)
[2019-10-12] MEDS ORDERED: cloNIDine HCL 0.1 MG TAB PO ONE (12:15)
[2019-10-12 12:32] LABS: Hematocrit 47.8 % (41.0-53.0); Hemoglobin 15.9 g/dL (13.5-17.5); Mean Corpuscular Hemoglobin 30.2 pg (28.0-32.0); Mean Corpuscular Hgb Conc. 33.3 g/dL (32.0-36.0); Mean Corpuscular Volume 90.7 fL (80.0-100.0); Platelet Count (auto) 142 10^3/uL (140-450); Red Blood Cells 5.27 10^6/uL (4.5-5.90); Red Cell Distribution Width 14.9 % (11.8-14.3); White Blood Cell 8.1 10^3/uL (4.4-10.8)
[2019-10-12 12:47] LABS: Basophils % (manual) 0 (0.0-2.0); Blast Cells 0; Metamyelocytes % 0; Myelocytes % 0; Promyelocytes % 0; Reactive Lymphocytes 0
[2019-10-12 12:48] LABS: Albumin 3.4 g/dL (3.4-5.0); Anion Gap 10 (5-15); Blood Urea Nitrogen 11 mg/dL (7-18); Calcium 9.3 mg/dL (8.5-10.1); Carbon Dioxide 22 mmol/L (21-32); Chloride 105 mmol/L (98-107); Glucose 115 mg/dL (74-106); Potassium 4.2 mmol/L (3.5-5.1); Sodium 137 mmol/L (136-145)
[2019-10-12 12:55] LABS: Alanine Aminotransferase 48 U/L (16-61); Alkaline Phosphatase 62 U/L (45-117); Aspartate Aminotransferase 26 U/L (15-37); BUN/Creatinine Ratio 8.5; Bilirubin, Total 0.4 mg/dL (0.2-1.0); GFR African American 77 mL/min; GFR Non-African American 63 mL/min; Total Protein 7.8 g/dL (6.4-8.2)
[2019-10-12 13:28] LABS: Band Neutrophils % (manual) 4; Eosinophils % (manual) 3 (0-7); Lymphocytes % (manual) 15 (10.0-50.0); Monocytes % (manual) 8 (0-12)
[2019-10-12 17:00] VITALS: BP 138/80
== END 2019-10-12 19:11 | disposition home or self-care (01) ==
LOC: ER 11:52 → EDBD 11:52 → ER 19:11
DX: G40.909 Epilepsy, unspecified, not intractable, without status epilepticus (principal); I10 Essential (primary) hypertension; E66.01 Morbid (severe) obesity due to excess calories; F41.9 Anxiety disorder, unspecified; F32.9 Major depressive disorder, single episode, unspecified; Z68.36 Body mass index [BMI] 36.0-36.9, adult
CPT/HCPCS: 36415; 70450; 71045; 80053; 84484; 85007; 85027

== ENCOUNTER 2019-12-15 18:56 | Emergency (ER) | payer OTHER, MEDICAID ==
[~2019-12-15] VITALS: Ht 185.4 cm; Wt 136.1 kg
[~2019-12-15 18:56] MED LIST changes: +ENAL2.5T11 PO; -ENAL2.5T2 PO
[2019-12-15] MEDS ORDERED: LORazepam 2MG/ML-1ML VIAL IV ONE (19:15)
[2019-12-15 19:58] LABS: Basophils # (auto) 0 10 ^3/uL (0-0.2); Basophils % (auto) 0.5 % (0.0-2.0); Eosinophils # (auto) 0.3 10 ^3/uL (0-0.8); Eosinophils % (auto) 3.1 % (0.0-7.0); Hematocrit 46.3 % (41.0-53.0); Lymphocytes # (auto) 1.5 10 ^3/uL (0.4-5.4); Lymphocytes % (auto) 16.8 % (10.0-50.0); Mean Corpuscular Hemoglobin 30.8 pg (28.0-32.0); Mean Corpuscular Hgb Conc. 34.5 g/dL (32.0-36.0); Mean Corpuscular Volume 89.1 fL (80.0-100.0); Monocytes # (auto) 0.9 10 ^3/uL (0-1.3); Monocytes % (auto) 9.9 % (0.0-12.0); Neutrophils # (auto) 6.3 10 ^3/uL (1.6-8.6); Neutrophils % (auto) 69.7 % (37.0-80.0); Nucleated Red Blood Cells % 0.1 %; Platelet Count (auto) 164 10^3/uL (140-450); Red Blood Cells 5.19 10^6/uL (4.5-5.90); Red Cell Distribution Width 14.7 % (11.8-14.3); White Blood Cell 9.1 10^3/uL (4.4-10.8)
[2019-12-15 20:06] LABS: Albumin 3.4 g/dL (3.4-5.0); Calcium 8.9 mg/dL (8.5-10.1)
[2019-12-15 20:07] LABS: INR 3.74 (0.9-1.15); Partial Thromboplastin Time 52.8 sec (23.0-31.2)
[2019-12-15 20:11] LABS: BUN/Creatinine Ratio 12.1; Bilirubin, Total 0.4 mg/dL (0.2-1.0); Total Protein 7.4 g/dL (6.4-8.2)
[2019-12-15 21:55] VITALS: BP 132/71
[2019-12-15 22:18] LABS: Urine Bacteria NONE SEEN /hpf (None Seen); Urine Blood TRACE /uL (Negative); Urine Mucus FEW (None Seen); Urine Specific Gravity 1.024 (1.001-1.035); Urine WBC 1 /hpf (0 - 3)
[2019-12-15 22:35] LABS: Amphetamine Screen, Urine NEGATIVE (NEGATIVE); Barbiturate Scree,Urine NEGATIVE (NEGATIVE); Benzodiazephine Screen, Urine NEGATIVE (NEGATIVE); Cannabinoid Screen, Urine NEGATIVE (NEGATIVE); Cocaine Screen, Urine NEGATIVE (NEGATIVE); Opiate Scree,Urine NEGATIVE (NEGATIVE); Phencyclidine Screen, Urine NEGATIVE (NEGATIVE)
== END 2019-12-15 22:28 | disposition home or self-care (01) ==
LOC: ER 18:56 → EDBD 18:56 → EDUNIT# 18:56 → ER 22:28
DX: G40.89 Other seizures (principal); I10 Essential (primary) hypertension; F41.9 Anxiety disorder, unspecified
CPT/HCPCS: 36415; 70450; 80053; 80307; 81001; 85025; 85610; 85730; 96365; 96375; 99284; J1953; J2060; J7030; J7060

== ENCOUNTER 2020-01-05 12:16 | Observation (INO) | payer OTHER, MEDICAID ==
[~2020-01-05] VITALS: Ht 177.8 cm; Wt 136.0 kg
[2020-01-05 14:12] LABS: Basophils # (auto) 0.1 10 ^3/uL (0-0.2); Basophils % (auto) 0.6 % (0.0-2.0); Eosinophils # (auto) 0.2 10 ^3/uL (0-0.8); Eosinophils % (auto) 1.9 % (0.0-7.0); Hemoglobin 16.2 g/dL (13.5-17.5); Lymphocytes # (auto) 1.4 10 ^3/uL (0.4-5.4); Lymphocytes % (auto) 14.1 % (10.0-50.0); Mean Corpuscular Hgb Conc. 34.4 g/dL (32.0-36.0); Mean Corpuscular Volume 90.1 fL (80.0-100.0); Monocytes # (auto) 0.8 10 ^3/uL (0-1.3); Monocytes % (auto) 7.9 % (0.0-12.0); Neutrophils # (auto) 7.4 10 ^3/uL (1.6-8.6); Neutrophils % (auto) 75.5 % (37.0-80.0); Nucleated Red Blood Cells % 0.2 %; Platelet Count (auto) 156 10^3/uL (140-450); Red Blood Cells 5.21 10^6/uL (4.5-5.90); Red Cell Distribution Width 15.2 % (11.8-14.3); White Blood Cell 9.9 10^3/uL (4.4-10.8)
[2020-01-05 14:23] LABS: Albumin 3.5 g/dL (3.4-5.0); Calcium 8.9 mg/dL (8.5-10.1); Potassium 4.1 mmol/L (3.5-5.1)
[2020-01-05 14:29] LABS: BUN/Creatinine Ratio 10.9; Bilirubin, Total 0.3 mg/dL (0.2-1.0); Total Protein 7.6 g/dL (6.4-8.2)
[2020-01-05] MEDS ORDERED: LORazepam 2MG/ML-1ML VIAL ONE (14:46)
[2020-01-05] MEDS ORDERED: LORazepam 2MG/ML-1ML VIAL IV ONE (15:00)
[2020-01-05] MEDS ORDERED: ACETAMINOPHEN 325 MG TAB PO PRN (15:15)
[2020-01-05] MEDS ORDERED: ONDANSETRON HCL 4 MG/2 ML VIAL IV PRN (15:15)
[2020-01-05] MEDS ORDERED: NITROGLYCERIN 0.4 MG SL TAB SL PRN (15:15)
[2020-01-05] MEDS ORDERED: DOCUSATE SOD 100 MG CAP PO PRN (15:15)
[2020-01-05] MEDS ORDERED: MORPHINE SULF INJ 2 MG/ML SYRINGE 1ML IV PRN (15:15)
[2020-01-05] MEDS: SODIUM CHLORIDE 0.9% 1,000 ML IV SCH (15:23)
[2020-01-05] MEDS ORDERED: LORazepam 2MG/ML-1ML VIAL IV PRN (15:30)
[2020-01-05] MEDS ORDERED: DEXTROSE (50%) 50ML SYRG IV PRN (15:30)
[2020-01-05] MEDS: InsuLIN REG 1unit/0.01ml Soln (100units/ml) SC SCH ×3 (16:00→23:42)
[2020-01-05] MEDS ORDERED: LEVE750T3 PO (16:04)
[2020-01-05] MEDS ORDERED: LAMO100T44 PO (16:05)
[2020-01-05] MEDS ORDERED: MET50T PO (16:05)
[2020-01-05] MEDS ORDERED: HYDR-531 PO (16:05)
[2020-01-05] MEDS ORDERED: DRON400T PO (16:05)
[2020-01-05] MEDS: ACCU-CHEK COMFORT CURVE STRIP VI SCH ×3 (16:38→23:42)
[2020-01-05 16:57] LABS: INR 3.15 (0.9-1.15); Partial Thromboplastin Time 47.6 sec (23.0-31.2)
[2020-01-05 17:24] VITALS: BP 139/82
[2020-01-05 17:58] VITALS: BP 139/82
[2020-01-05] MEDS ORDERED: METOPROLOL TARTRATE 25 MG TAB PO SCH ×2 (18:00→22:00)
[2020-01-05 22:00] VITALS: BP 133/67
[2020-01-05] MEDS: levETIRAcetam 500 MG TAB PO SCH (22:12)
[2020-01-05] MEDS: lamoTRIgine 100 MG TAB PO SCH (22:12)
[2020-01-06 00:26] VITALS: BP 96/46
[2020-01-06] MEDS: InsuLIN REG 1unit/0.01ml Soln (100units/ml) SC SCH ×2 (04:00→07:37)
[2020-01-06] MEDS: ACCU-CHEK COMFORT CURVE STRIP VI SCH ×2 (04:03→07:37)
[2020-01-06] MEDS: SODIUM CHLORIDE 0.9% 1,000 ML IV SCH (04:03)
[2020-01-06 05:00] VITALS: BP 113/56
[2020-01-06] MEDS ORDERED: METOPROLOL TARTRATE 50 MG TAB PO SCH ×2 (08:00→10:00)
[2020-01-06 08:37] VITALS: BP 100/59
[2020-01-06 09:10] LABS: Urine WBC None Seen /hpf (0 - 3)
[2020-01-06] MEDS: levETIRAcetam 500 MG TAB PO SCH (09:18)
[2020-01-06] MEDS: lamoTRIgine 100 MG TAB PO SCH (09:18)
[2020-01-06 09:32] LABS: Urine Amorphous Crystal FEW /hpf (None Seen); Urine Bacteria NONE SEEN /hpf (None Seen); Urine Blood Negative /uL (Negative); Urine Mucus FEW (None Seen); Urine Specific Gravity 1.022 (1.001-1.035)
[2020-01-06 09:33] LABS: Amphetamine Screen, Urine NEGATIVE (NEGATIVE); Barbiturate Scree,Urine NEGATIVE (NEGATIVE); Benzodiazephine Screen, Urine NEGATIVE (NEGATIVE); Cannabinoid Screen, Urine NEGATIVE (NEGATIVE); Cocaine Screen, Urine NEGATIVE (NEGATIVE); Opiate Scree,Urine NEGATIVE (NEGATIVE); Phencyclidine Screen, Urine NEGATIVE (NEGATIVE)
[2020-01-06] MEDS ORDERED: ENALAPRIL MALEATE 2.5 MG TAB PO SCH (10:00)
[2020-01-06 10:13] LABS: INR 2.48 (0.9-1.15); Partial Thromboplastin Time 43.3 sec (23.0-31.2)
[2020-01-06] MEDS ORDERED: WARFARIN SODIUM 2 MG TAB PO ONE (17:00)
== END 2020-01-06 11:45 | disposition home or self-care (01) ==
LOC: ER 12:16 → EDBD 12:16 → TELE 12:17 → INTOOBSV 12:17 → TELE-CENTR 17:13
PROVIDERS: ADMIT Hospitalist; ATTEND Hospitalist
DX: G40.209 Localization-related (focal) (partial) symptomatic epilepsy and epileptic syndromes with complex partial seizures, not intractable, without status epilepticus (principal); S09.90XA Unspecified injury of head, initial encounter; S01.81XA Laceration without foreign body of other part of head, initial encounter; E11.9 Type 2 diabetes mellitus without complications; I48.20 Chronic atrial fibrillation, unspecified; E66.01 Morbid (severe) obesity due to excess calories; F41.8 Other specified anxiety disorders; I10 Essential (primary) hypertension; G47.33 Obstructive sleep apnea (adult) (pediatric); X58.XXXA Exposure to other specified factors, initial encounter; Y93.89 Activity, other specified; Y92.89 Other specified places as the place of occurrence of the external cause; Z88.0 Allergy status to penicillin; Z79.899 Other long term (current) drug therapy; Z91.19 Patient's noncompliance with other medical treatment and regimen
CPT/HCPCS: 36415; 70450; 70486; 80053; 80164; 80307; 81001; 82542; 82962; 85025; 85610; 85730; 95819; 96361; 96365; 96375; 99285; G0378; J1953; J2060; J7060

== ENCOUNTER 2020-01-17 12:00 | Emergency (ER) | payer OTHER, MEDICAID ==
[~2020-01-17] VITALS: Ht 170.2 cm; Wt 124.7 kg
[~2020-01-17 12:00] MED LIST changes: +DRON400T PO; -ENAL2.5T11 PO; +LAMO100T44 PO; -LAMO150T26 PO; -LEVE100020 PO; +LEVE750T3 PO
[2020-01-17] MEDS ORDERED: SODIUM CHLORIDE 0.9% 1,000 ML IV ONE (12:45)
[2020-01-17 13:33] LABS: Hematocrit 44.6 % (41.0-53.0); Hemoglobin 15.1 g/dL (13.5-17.5); Mean Corpuscular Hemoglobin 30.2 pg (28.0-32.0); Mean Corpuscular Hgb Conc. 33.9 g/dL (32.0-36.0); Mean Corpuscular Volume 89.2 fL (80.0-100.0); Platelet Count (auto) 164 10^3/uL (140-450); Red Blood Cells 4.99 10^6/uL (4.5-5.90); Red Cell Distribution Width 14.8 % (11.8-14.3); White Blood Cell 8.5 10^3/uL (4.4-10.8)
[2020-01-17 13:36] LABS: Basophils % (manual) 0 (0.0-2.0); Blast Cells 0; Myelocytes % 0; Promyelocytes % 0; Reactive Lymphocytes 0
[2020-01-17 13:40] LABS: Anion Gap 4 (5-15); Carbon Dioxide 27 mmol/L (21-32); Chloride 106 mmol/L (98-107); Potassium 4.4 mmol/L (3.5-5.1); Sodium 137 mmol/L (136-145)
[2020-01-17 13:41] LABS: Albumin 3.3 g/dL (3.4-5.0); Blood Urea Nitrogen 13 mg/dL (7-18); Calcium 8.5 mg/dL (8.5-10.1); Glucose 104 mg/dL (74-106)
[2020-01-17 13:46] LABS: Alanine Aminotransferase 49 U/L (16-61); Alkaline Phosphatase 56 U/L (45-117); Aspartate Aminotransferase 28 U/L (15-37); BUN/Creatinine Ratio 11.6; Bilirubin, Total 0.3 mg/dL (0.2-1.0); GFR African American 90 mL/min; GFR Non-African American 75 mL/min; Total Protein 7.2 g/dL (6.4-8.2)
[2020-01-17 14:16] LABS: Band Neutrophils % (manual) 1; Eosinophils % (manual) 7 (0-7); Lymphocytes % (manual) 12 (10.0-50.0); Monocytes % (manual) 9 (0-12)
[2020-01-17 14:17] LABS: Metamyelocytes % 1
[2020-01-17] MEDS ORDERED: LORazepam 2MG/ML-1ML VIAL ONE (18:33)
[2020-01-17] MEDS ORDERED: LORazepam 2MG/ML-1ML VIAL IV ONE (19:45)
[2020-01-18] VITALS: BP 159/76
== END 2020-01-18 00:55 | disposition home or self-care (01) ==
LOC: ER 12:00 → EDBD 12:00 → ER 01-18 00:55
DX: G40.909 Epilepsy, unspecified, not intractable, without status epilepticus (principal); I10 Essential (primary) hypertension; Z88.0 Allergy status to penicillin; Z88.8 Allergy status to other drugs, medicaments and biological substances
CPT/HCPCS: 36415; 70450; 71045; 80053; 84484; 85007; 85027; 93005; 96365; 96375; 99285; J1953; J2060; J7030; J7060

== ENCOUNTER 2020-01-18 01:48 | Observation (INO) | payer OTHER, MEDICAID ==
[~2020-01-18] VITALS: Ht 167.6 cm; Wt 121.6 kg
[2020-01-18] MEDS ORDERED: levETIRAcetam 500 MG/5ML INJ IV ONE (02:44)
[2020-01-18 04:44] LABS: BUN/Creatinine Ratio 7.6; Potassium 3.2 mmol/L (3.5-5.1)
[2020-01-18 04:46] LABS: Hematocrit 46.2 % (41.0-53.0); Hemoglobin 15.2 g/dL (13.5-17.5); Mean Corpuscular Hgb Conc. 32.9 g/dL (32.0-36.0); Mean Corpuscular Volume 91.1 fL (80.0-100.0); Platelet Count (auto) 173 10^3/uL (140-450); Red Blood Cells 5.07 10^6/uL (4.5-5.90); Red Cell Distribution Width 14.9 % (11.8-14.3); White Blood Cell 10.7 10^3/uL (4.4-10.8)
[2020-01-18 04:48] LABS: Bilirubin, Total 0.5 mg/dL (0.2-1.0); Calcium 8.3 mg/dL (8.5-10.1); Total Protein 7.7 g/dL (6.4-8.2)
[2020-01-18 04:54] LABS: Basophils % (manual) 0 (0.0-2.0); Blast Cells 0; Metamyelocytes % 0; Myelocytes % 0; Promyelocytes % 0; Reactive Lymphocytes 0
[2020-01-18 04:57] LABS: Albumin 3.4 g/dL (3.4-5.0)
[2020-01-18 06:15] LABS: Band Neutrophils % (manual) 5; Eosinophils % (manual) 1 (0-7); Lymphocytes % (manual) 17 (10.0-50.0); Monocytes % (manual) 8 (0-12)
[2020-01-18] MEDS ORDERED: DEXTROSE (50%) 50ML SYRG IV PRN (06:45)
[2020-01-18] MEDS ORDERED: LORazepam 2MG/ML-1ML VIAL IV PRN (06:45)
[2020-01-18] MEDS ORDERED: NITROGLYCERIN 0.4 MG SL TAB SL PRN (06:45)
[2020-01-18] MEDS ORDERED: SODIUM BICARBONATE 8.4 % INJ 50ML VIAL IV ONE (07:00)
[2020-01-18] MEDS ORDERED: SODIUM CHLORIDE 0.9% 1,000 ML IV ONE (07:00)
[2020-01-18] MEDS: InsuLIN REG 1unit/0.01ml Soln (100units/ml) SC SCH ×2 (07:00→11:28)
[2020-01-18 07:10] LABS: Hematocrit 44.8 % (41.0-53.0); Hemoglobin 14.9 g/dL (13.5-17.5); Mean Corpuscular Hemoglobin 30.1 pg (28.0-32.0); Mean Corpuscular Hgb Conc. 33.3 g/dL (32.0-36.0); Mean Corpuscular Volume 90.4 fL (80.0-100.0); Platelet Count (auto) 172 10^3/uL (140-450); Red Blood Cells 4.96 10^6/uL (4.5-5.90); Red Cell Distribution Width 15.2 % (11.8-14.3); White Blood Cell 10.3 10^3/uL (4.4-10.8)
[2020-01-18] MEDS: POTASSIUM CHL 20MEQ/100ML 100 ML IV SCH ×2 (07:11→11:30)
[2020-01-18 07:13] LABS: Basophils % (manual) 0 (0.0-2.0); Blast Cells 0; Myelocytes % 0; Promyelocytes % 0; Reactive Lymphocytes 0
[2020-01-18] MEDS: ACCU-CHEK COMFORT CURVE STRIP VI SCH ×2 (07:13→11:27)
[2020-01-18 07:23] LABS: INR 2.21 (0.9-1.15)
[2020-01-18 07:30] LABS: Albumin 3.2 g/dL (3.4-5.0); Potassium 4.3 mmol/L (3.5-5.1)
[2020-01-18 07:34] LABS: BUN/Creatinine Ratio 12.1; Bilirubin, Total 0.5 mg/dL (0.2-1.0); Total Protein 7.3 g/dL (6.4-8.2)
[2020-01-18 07:47] LABS: Band Neutrophils % (manual) 1; Eosinophils % (manual) 2 (0-7); Lymphocytes % (manual) 18 (10.0-50.0); Metamyelocytes % 1; Monocytes % (manual) 4 (0-12)
[2020-01-18] MEDS ORDERED: levETIRAcetam 500 MG TAB PO SCH (10:00)
[2020-01-18] MEDS ORDERED: lamoTRIgine 100 MG TAB PO SCH (10:00)
[2020-01-18 13:45] VITALS: BP 178/97
[2020-01-18] MEDS ORDERED: WARFARIN SODIUM 2.5 MG TAB PO ONE (17:00)
[2020-01-18] MEDS ORDERED: InsuLIN REG 1unit/0.01ml Soln (100units/ml) SC SCH (22:00)
== END 2020-01-18 13:46 | disposition home or self-care (01) ==
LOC: ER 01:48 → EDBD 01:48 → TELE 01:49
PROVIDERS: ADMIT Internal Medicine; ATTEND Internal Medicine
DX: G40.909 Epilepsy, unspecified, not intractable, without status epilepticus (principal); I48.20 Chronic atrial fibrillation, unspecified; E87.8 Other disorders of electrolyte and fluid balance, not elsewhere classified; I10 Essential (primary) hypertension; E11.9 Type 2 diabetes mellitus without complications; E66.01 Morbid (severe) obesity due to excess calories; E78.5 Hyperlipidemia, unspecified; F41.8 Other specified anxiety disorders; R41.82 Altered mental status, unspecified; Z79.899 Other long term (current) drug therapy; Z79.01 Long term (current) use of anticoagulants; Z91.19 Patient's noncompliance with other medical treatment and regimen
CPT/HCPCS: 36415; 36600; 80053; 82805; 82962; 85007; 85027; 85610; 93005; 96361; 96365; 96375; 99284; G0378; J1953; J3480; J7060

== ENCOUNTER 2020-02-19 16:50 | Emergency (ER) | payer OTHER, MEDICAID ==
[~2020-02-19] VITALS: Ht 175.3 cm; Wt 136.1 kg
[2020-02-19] MEDS ORDERED: LORazepam 2MG/ML-1ML VIAL ONE (18:05)
[2020-02-19] MEDS ORDERED: LORazepam 2MG/ML-1ML VIAL IM ONE (18:15)
[2020-02-19] MEDS ORDERED: levETIRAcetam 500 MG/5ML INJ IV ONE (21:34)
[2020-02-19 21:51] VITALS: BP 142/85
[2020-02-19 23:20] LABS: Basophils # (auto) 0.1 10 ^3/uL (0-0.2); Basophils % (auto) 0.8 % (0.0-2.0); Eosinophils # (auto) 0 10 ^3/uL (0-0.8); Eosinophils % (auto) 0.3 % (0.0-7.0); Hematocrit 49.6 % (41.0-53.0); Hemoglobin 16.7 g/dL (13.5-17.5); Lymphocytes % (auto) 13.1 % (10.0-50.0); Mean Corpuscular Hgb Conc. 33.7 g/dL (32.0-36.0); Mean Corpuscular Volume 88.9 fL (80.0-100.0); Monocytes # (auto) 0.8 10 ^3/uL (0-1.3); Neutrophils # (auto) 12.3 10 ^3/uL (1.6-8.6); Neutrophils % (auto) 80.8 % (37.0-80.0); Nucleated Red Blood Cells % 0.7 %; Platelet Count (auto) 195 10^3/uL (140-450); Red Blood Cells 5.57 10^6/uL (4.5-5.90); Red Cell Distribution Width 15.2 % (11.8-14.3); White Blood Cell 15.3 10^3/uL (4.4-10.8)
[2020-02-19 23:26] LABS: Albumin 3.4 g/dL (3.4-5.0); Anion Gap 8 (5-15); BUN/Creatinine Ratio 8.6; Blood Alcohol < 3.0 mg/dL (0-5); Blood Urea Nitrogen 9 mg/dL (7-18); Calcium 8.8 mg/dL (8.5-10.1); Carbon Dioxide 23 mmol/L (21-32); Chloride 105 mmol/L (98-107); GFR African American 97 mL/min; GFR Non-African American 80 mL/min; Glucose 97 mg/dL (74-106); Magnesium 2.1 mg/dL (1.6-2.6); Potassium 4.3 mmol/L (3.5-5.1); Sodium 136 mmol/L (136-145)
[2020-02-19 23:35] LABS: Alanine Aminotransferase 46 U/L (16-61); Alkaline Phosphatase 62 U/L (45-117); Aspartate Aminotransferase 34 U/L (15-37); Bilirubin, Total 0.5 mg/dL (0.2-1.0)
== END 2020-02-20 01:45 | disposition home or self-care (01) ==
LOC: ER 16:50 → EDBD 16:50 → ER 02-20 01:45
DX: G40.909 Epilepsy, unspecified, not intractable, without status epilepticus (principal); I10 Essential (primary) hypertension; Z91.19 Patient's noncompliance with other medical treatment and regimen
CPT/HCPCS: 36415; 70450; 71045; 80053; 80320; 83735; 85025; 96365; 99285; J1953; J2060; J7060

== ENCOUNTER 2020-04-01 10:55 | Emergency (ER) | payer OTHER, MEDICAID ==
[~2020-04-01] VITALS: Ht 177.8 cm; Wt 124.7 kg
[2020-04-01] MEDS ORDERED: SODIUM CHLORIDE 0.9% 1,000 ML IVB ONE (11:15)
[2020-04-01 11:39] LABS: Basophils # (auto) 0.1 10 ^3/uL (0-0.2); Eosinophils # (auto) 0.4 10 ^3/uL (0-0.8); Eosinophils % (auto) 4.7 % (0.0-7.0); Hematocrit 45.6 % (41.0-53.0); Hemoglobin 15.2 g/dL (13.5-17.5); Lymphocytes # (auto) 1.5 10 ^3/uL (0.4-5.4); Lymphocytes % (auto) 15.8 % (10.0-50.0); Mean Corpuscular Hemoglobin 29.3 pg (28.0-32.0); Mean Corpuscular Hgb Conc. 33.4 g/dL (32.0-36.0); Mean Corpuscular Volume 87.9 fL (80.0-100.0); Monocytes # (auto) 0.8 10 ^3/uL (0-1.3); Monocytes % (auto) 8.5 % (0.0-12.0); Neutrophils # (auto) 6.7 10 ^3/uL (1.6-8.6); Nucleated Red Blood Cells % 0.4 %; Red Blood Cells 5.19 10^6/uL (4.5-5.90); Red Cell Distribution Width 14.8 % (11.8-14.3); White Blood Cell 9.5 10^3/uL (4.4-10.8)
[2020-04-01 11:56] LABS: Albumin 3.2 g/dL (3.4-5.0); Anion Gap 3 (5-15); Blood Urea Nitrogen 11 mg/dL (7-18); Calcium 8.7 mg/dL (8.5-10.1); Carbon Dioxide 27 mmol/L (21-32); Chloride 110 mmol/L (98-107); Glucose 96 mg/dL (74-106); Potassium 4.2 mmol/L (3.5-5.1); Sodium 140 mmol/L (136-145)
[2020-04-01 12:02] LABS: Alanine Aminotransferase 34 U/L (16-61); Alkaline Phosphatase 60 U/L (45-117); Aspartate Aminotransferase 22 U/L (15-37); BUN/Creatinine Ratio 10.7; Bilirubin, Total 0.2 mg/dL (0.2-1.0); Blood Alcohol < 3.0 mg/dL (0-5); GFR African American 100 mL/min; GFR Non-African American 82 mL/min; INR 1.93 (0.9-1.15); Partial Thromboplastin Time 37.3 sec (23.0-31.2); Total Protein 7.4 g/dL (6.4-8.2)
[2020-04-01 13:00] VITALS: BP 134/90
[2020-04-01] MEDS ORDERED: LORazepam 2MG/ML-1ML VIAL ONE (13:28)
[2020-05-17] MEDS ORDERED: LORazepam 2MG/ML-1ML VIAL IV ONE (12:00)
== END 2020-04-01 17:23 | disposition home or self-care (01) ==
LOC: EDBD 10:55 → ER 10:55
DX: G40.909 Epilepsy, unspecified, not intractable, without status epilepticus (principal); S09.93XA Unspecified injury of face, initial encounter; I10 Essential (primary) hypertension; X58.XXXA Exposure to other specified factors, initial encounter; Y93.89 Activity, other specified; Y92.89 Other specified places as the place of occurrence of the external cause; Y99.8 Other external cause status
CPT/HCPCS: 36415; 70450; 71045; 80053; 80320; 83735; 85025; 85610; 85730; 96365; 96366; 99285; J1953; J2060; J7030; J7060

== ENCOUNTER 2020-04-18 10:18 | Emergency (ER) | payer OTHER, MEDICAID ==
[~2020-04-18] VITALS: Ht 182.9 cm; Wt 136.1 kg
[2020-04-18 10:18] VITALS: BP 200/134
[2020-04-18] MEDS ORDERED: LORazepam 2MG/ML-1ML VIAL IV ONE (11:00)
[2020-04-18] MEDS ORDERED: SODIUM CHLORIDE 0.9% 1,000 ML IVB ONE (11:00)
[2020-04-18 11:35] LABS: Albumin 3.3 g/dL (3.4-5.0); Potassium 4.1 mmol/L (3.5-5.1)
[2020-04-18 11:36] LABS: Basophils # (auto) 0.1 10 ^3/uL (0-0.2); Basophils % (auto) 0.7 % (0.0-2.0); Eosinophils # (auto) 0.1 10 ^3/uL (0-0.8); Eosinophils % (auto) 1.6 % (0.0-7.0); Hematocrit 45.9 % (41.0-53.0); Hemoglobin 15.4 g/dL (13.5-17.5); Lymphocytes # (auto) 1.1 10 ^3/uL (0.4-5.4); Lymphocytes % (auto) 13.3 % (10.0-50.0); Mean Corpuscular Hemoglobin 29.6 pg (28.0-32.0); Mean Corpuscular Hgb Conc. 33.6 g/dL (32.0-36.0); Monocytes # (auto) 0.6 10 ^3/uL (0-1.3); Monocytes % (auto) 6.9 % (0.0-12.0); Neutrophils # (auto) 6.4 10 ^3/uL (1.6-8.6); Neutrophils % (auto) 77.5 % (37.0-80.0); Nucleated Red Blood Cells % 0.1 %; Platelet Count (auto) 171 10^3/uL (140-450); Red Blood Cells 5.21 10^6/uL (4.5-5.90); Red Cell Distribution Width 15.1 % (11.8-14.3); White Blood Cell 8.3 10^3/uL (4.4-10.8)
[2020-04-18 11:37] LABS: BUN/Creatinine Ratio 10.7; Bilirubin, Total 0.4 mg/dL (0.2-1.0); Total Protein 7.8 g/dL (6.4-8.2)
== END 2020-04-18 13:45 | disposition home or self-care (01) ==
LOC: ER 10:18 → EDBD 10:18 → ER 13:45
DX: G40.909 Epilepsy, unspecified, not intractable, without status epilepticus (principal); I10 Essential (primary) hypertension; Z20.822 Contact with and (suspected) exposure to COVID-19
CPT/HCPCS: 36415; 70486; 80053; 85025; 87426; 96361; 96365; 96375; 99284; C9803; J1953; J2060; J7060; U0003

== ENCOUNTER 2020-04-18 17:54 | Emergency (ER) | payer OTHER, MEDICAID ==
[~2020-04-18] VITALS: Ht 177.8 cm; Wt 136.1 kg
[2020-04-18] MEDS ORDERED: LORazepam 2MG/ML-1ML VIAL IV ONE (19:30)
[2020-04-18 20:25] LABS: Basophils # (auto) 0.1 10 ^3/uL (0-0.2); Basophils % (auto) 0.7 % (0.0-2.0); Eosinophils # (auto) 0 10 ^3/uL (0-0.8); Eosinophils % (auto) 0.1 % (0.0-7.0); Hematocrit 44.8 % (41.0-53.0); Hemoglobin 15.6 g/dL (13.5-17.5); Lymphocytes # (auto) 1.1 10 ^3/uL (0.4-5.4); Lymphocytes % (auto) 10.5 % (10.0-50.0); Mean Corpuscular Hemoglobin 30.4 pg (28.0-32.0); Mean Corpuscular Hgb Conc. 34.7 g/dL (32.0-36.0); Mean Corpuscular Volume 87.4 fL (80.0-100.0); Monocytes # (auto) 0.7 10 ^3/uL (0-1.3); Monocytes % (auto) 6.3 % (0.0-12.0); Neutrophils # (auto) 8.6 10 ^3/uL (1.6-8.6); Neutrophils % (auto) 82.4 % (37.0-80.0); Nucleated Red Blood Cells % 0.2 %; Red Blood Cells 5.13 10^6/uL (4.5-5.90); Red Cell Distribution Width 14.8 % (11.8-14.3); White Blood Cell 10.5 10^3/uL (4.4-10.8)
[2020-04-18 20:39] LABS: INR 2.33 (0.9-1.15); Partial Thromboplastin Time 41.9 sec (23.0-31.2)
[2020-04-18 20:43] LABS: Acetaminophen < 2.0 ug/mL (10-30); BUN/Creatinine Ratio 10.4; Calcium 9.1 mg/dL (8.5-10.1); Potassium 4.6 mmol/L (3.5-5.1); Salicylate < 1.7 mg/dL (2.8-20.0)
[2020-04-18 20:50] LABS: Albumin 3.4 g/dL (3.4-5.0); Bilirubin, Total 0.5 mg/dL (0.2-1.0); Total Protein 7.9 g/dL (6.4-8.2)
[2020-04-18] MEDS ORDERED: LORazepam 2MG/ML-1ML VIAL ONE (22:33)
[2020-04-19] MEDS ORDERED: levETIRAcetam 500 MG/5ML INJ IV ONE (00:55)
[2020-04-19] MEDS ORDERED: levETIRAcetam 500 MG TAB PO ONE (02:00)
[2020-04-19 08:00] VITALS: BP 152/97
== END 2020-04-19 08:29 | disposition home or self-care (01) ==
LOC: EDBD 17:54 → ER 17:59
DX: S00.31XA Abrasion of nose, initial encounter (principal); G40.909 Epilepsy, unspecified, not intractable, without status epilepticus; I10 Essential (primary) hypertension; I48.91 Unspecified atrial fibrillation; E11.9 Type 2 diabetes mellitus without complications; E66.01 Morbid (severe) obesity due to excess calories; R41.82 Altered mental status, unspecified; Z68.41 Body mass index [BMI] 40.0-44.9, adult; Z91.19 Patient's noncompliance with other medical treatment and regimen; Z79.01 Long term (current) use of anticoagulants; W18.39XA Other fall on same level, initial encounter; Y93.89 Activity, other specified; Y92.89 Other specified places as the place of occurrence of the external cause; Y99.8 Other external cause status
CPT/HCPCS: 36415; 70450; 80053; 80320; 80329; 82550; 83735; 83880; 84484; 85025; 85610; 85730; 96365; 96375; 99285; J1953; J2060; J7060

== ENCOUNTER 2020-05-21 11:50 | Emergency (ER) | payer OTHER, MEDICAID ==
[~2020-05-21] VITALS: Ht 172.7 cm; Wt 136.1 kg
[2020-05-21] MEDS ORDERED: LAMO250T2 PO (13:38)
[2020-05-21] MEDS ORDERED: HYDR-4607 (13:38)
[2020-05-21] MEDS ORDERED: ENAL2.5T7 PO (13:38)
[2020-05-21] MEDS ORDERED: WARF7.5T20 PO (13:38)
[2020-05-21] MEDS ORDERED: MET50T PO (13:38)
[2020-05-21 14:07] LABS: Basophils # (auto) 0.1 10 ^3/uL (0-0.2); Basophils % (auto) 0.8 % (0.0-2.0); Eosinophils # (auto) 0.1 10 ^3/uL (0-0.8); Eosinophils % (auto) 1.2 % (0.0-7.0); Hematocrit 44.9 % (41.0-53.0); Hemoglobin 15.2 g/dL (13.5-17.5); Lymphocytes # (auto) 1.3 10 ^3/uL (0.4-5.4); Lymphocytes % (auto) 15.2 % (10.0-50.0); Mean Corpuscular Hemoglobin 29.5 pg (28.0-32.0); Mean Corpuscular Hgb Conc. 33.9 g/dL (32.0-36.0); Mean Corpuscular Volume 87.2 fL (80.0-100.0); Monocytes # (auto) 0.6 10 ^3/uL (0-1.3); Monocytes % (auto) 7.3 % (0.0-12.0); Neutrophils # (auto) 6.3 10 ^3/uL (1.6-8.6); Neutrophils % (auto) 75.5 % (37.0-80.0); Nucleated Red Blood Cells % 0.2 %; Platelet Count (auto) 179 10^3/uL (140-450); Red Blood Cells 5.14 10^6/uL (4.5-5.90); Red Cell Distribution Width 14.9 % (11.8-14.3); White Blood Cell 8.4 10^3/uL (4.4-10.8)
[2020-05-21 14:20] LABS: INR 2.49 (0.9-1.15); Partial Thromboplastin Time 43.7 sec (23.0-31.2)
[2020-05-21 14:23] LABS: Albumin 3.3 g/dL (3.4-5.0); Calcium 8.9 mg/dL (8.5-10.1); Magnesium 2.2 mg/dL (1.6-2.6); Potassium 4.3 mmol/L (3.5-5.1)
[2020-05-21 14:26] LABS: BUN/Creatinine Ratio 11.9; Bilirubin, Total 0.3 mg/dL (0.2-1.0); Total Protein 7.8 g/dL (6.4-8.2)
[2020-05-21] MEDS: ACETAMINOPHEN 325 MG TAB PO ONE (15:28)
[2020-05-21] MEDS: LORazepam 2MG/ML-1ML VIAL IV ONE (15:31)
[2020-05-21 19:00] VITALS: BP 142/94
== END 2020-05-21 21:29 | disposition home or self-care (01) ==
LOC: ER 11:50 → EDBD 11:50 → ER 21:29
DX: G40.909 Epilepsy, unspecified, not intractable, without status epilepticus (principal); I10 Essential (primary) hypertension; E78.5 Hyperlipidemia, unspecified; Z91.14 Patient's other noncompliance with medication regimen
CPT/HCPCS: 36415; 71045; 80053; 83735; 85025; 85610; 85730; 96365; 96375; 99285; J1953; J7060; 93005

== ENCOUNTER 2020-06-22 17:11 | Emergency (ER) | payer OTHER, MEDICAID ==
[~2020-06-22] VITALS: Ht 172.7 cm; Wt 72.0 kg
[~2020-06-22 17:11] MED LIST changes: +ENAL2.5T7 PO; +HYDR-4607; +LAMO250T2 PO; +MET50T PO; +WARF7.5T20 PO
[2020-06-22 18:13] LABS: Basophils # (auto) 0 10 ^3/uL (0-0.2); Basophils % (auto) 0.3 % (0.0-2.0); Eosinophils # (auto) 0.1 10 ^3/uL (0-0.8); Eosinophils % (auto) 0.7 % (0.0-7.0); Hematocrit 44.4 % (41.0-53.0); Hemoglobin 15.2 g/dL (13.5-17.5); Lymphocytes # (auto) 0.7 10 ^3/uL (0.4-5.4); Lymphocytes % (auto) 7.4 % (10.0-50.0); Mean Corpuscular Hemoglobin 29.9 pg (28.0-32.0); Mean Corpuscular Hgb Conc. 34.3 g/dL (32.0-36.0); Mean Corpuscular Volume 87.1 fL (80.0-100.0); Monocytes # (auto) 0.6 10 ^3/uL (0-1.3); Monocytes % (auto) 6.9 % (0.0-12.0); Neutrophils # (auto) 7.5 10 ^3/uL (1.6-8.6); Neutrophils % (auto) 84.7 % (37.0-80.0); Nucleated Red Blood Cells % 0.6 %; Platelet Count (auto) 148 10^3/uL (140-450); Red Blood Cells 5.09 10^6/uL (4.5-5.90); White Blood Cell 8.9 10^3/uL (4.4-10.8)
[2020-06-22 18:27] LABS: Alanine Aminotransferase 45 U/L (16-61); Albumin 3.5 g/dL (3.4-5.0); Anion Gap 10 (5-15); Aspartate Aminotransferase 25 U/L (15-37); BUN/Creatinine Ratio 11.9; Blood Alcohol < 3.0 mg/dL (0-5); Blood Urea Nitrogen 12 mg/dL (7-18); Calcium 8.6 mg/dL (8.5-10.1); Carbon Dioxide 21 mmol/L (21-32); Chloride 106 mmol/L (98-107); GFR African American 102 mL/min; GFR Non-African American 84 mL/min; Glucose 109 mg/dL (74-106); Magnesium 1.8 mg/dL (1.6-2.6); Potassium 3.7 mmol/L (3.5-5.1); Sodium 137 mmol/L (136-145)
[2020-06-22 18:30] LABS: Alkaline Phosphatase 67 U/L (45-117); Bilirubin, Total 0.5 mg/dL (0.2-1.0); Total Protein 7.6 g/dL (6.4-8.2)
[2020-06-22] MEDS ORDERED: LORazepam 2MG/ML-1ML VIAL IV ONE (19:44)
[2020-06-22] MEDS ORDERED: LORazepam 2MG/ML-1ML VIAL ONE (19:44)
[2020-06-23] MEDS ORDERED: levETIRAcetam 500 MG TAB PO ONE (00:30)
[2020-06-23 04:00] VITALS: BP 131/88
== END 2020-06-23 06:27 | disposition home or self-care (01) ==
LOC: EDBD 17:11 → ER 17:11
DX: G40.89 Other seizures (principal)
CPT/HCPCS: 36415; 71045; 80053; 80320; 82962; 83735; 85025; 96374; 99285; J2060

== ENCOUNTER 2020-07-20 23:24 | Emergency (ER) | payer OTHER, MEDICAID ==
[~2020-07-20] VITALS: Ht 172.7 cm; Wt 145.1 kg
[2020-07-21 00:17] LABS: Albumin 3.4 g/dL (3.4-5.0); BUN/Creatinine Ratio 8.2; Potassium 3.9 mmol/L (3.5-5.1)
[2020-07-21 00:20] LABS: Bilirubin, Total 0.5 mg/dL (0.2-1.0); Total Protein 7.9 g/dL (6.4-8.2)
[2020-07-21 00:21] LABS: Hematocrit 46.8 % (41.0-53.0); Mean Corpuscular Hemoglobin 29.8 pg (28.0-32.0); Mean Corpuscular Hgb Conc. 34.2 g/dL (32.0-36.0); Mean Corpuscular Volume 87.2 fL (80.0-100.0); Platelet Count (auto) 152 10^3/uL (140-450); Red Blood Cells 5.36 10^6/uL (4.5-5.90); Red Cell Distribution Width 15.2 % (11.8-14.3); White Blood Cell 7.5 10^3/uL (4.4-10.8)
[2020-07-21 00:24] LABS: Basophils % (manual) 0 (0.0-2.0); Blast Cells 0; Eosinophils % (manual) 0 (0-7); Myelocytes % 0; Promyelocytes % 0; Reactive Lymphocytes 0
[2020-07-21 00:51] LABS: Band Neutrophils % (manual) 8; Lymphocytes % (manual) 7 (10.0-50.0); Metamyelocytes % 1; Monocytes % (manual) 8 (0-12)
[2020-07-21] MEDS ORDERED: levETIRAcetam 500 MG/5ML INJ IV ONE ×2 (03:20→09:00)
[2020-07-21] MEDS ORDERED: LORazepam 2MG/ML-1ML VIAL ONE (08:23)
[2020-07-21] MEDS ORDERED: LORazepam 2MG/ML-1ML VIAL IV ONE (08:45)
[2020-07-21 13:47] VITALS: BP 131/73
== END 2020-07-21 14:14 | disposition home or self-care (01) ==
LOC: EDBD 23:24 → ER 23:26
DX: G40.89 Other seizures (principal); R41.82 Altered mental status, unspecified; Z20.822 Contact with and (suspected) exposure to COVID-19
CPT/HCPCS: 36415; 70450; 80053; 82542; 85007; 85027; 87426; 93005; 96365; 96366; 96375; 99291; J1953; J2060; J7060

== ENCOUNTER 2020-09-07 16:53 | Emergency (ER) | payer OTHER, MEDICAID ==
[~2020-09-07] VITALS: Ht 185.4 cm; Wt 127.0 kg
[2020-09-07] MEDS ORDERED: LORazepam 2MG/ML-1ML VIAL ONE (17:39)
[2020-09-07] MEDS ORDERED: LORazepam 2MG/ML-1ML VIAL IV ONE (17:45)
[2020-09-07] MEDS ORDERED: SODIUM CHLORIDE 0.9% 1,000 ML IVB ONE (18:00)
[2020-09-07 18:31] LABS: Basophils # (auto) 0.1 10 ^3/uL (0-0.2); Basophils % (auto) 0.8 % (0.0-2.0); Eosinophils # (auto) 0.1 10 ^3/uL (0-0.8); Hematocrit 46.9 % (41.0-53.0); Lymphocytes # (auto) 1.4 10 ^3/uL (0.4-5.4); Lymphocytes % (auto) 11.3 % (10.0-50.0); Mean Corpuscular Hemoglobin 30.1 pg (28.0-32.0); Mean Corpuscular Hgb Conc. 34.2 g/dL (32.0-36.0); Mean Corpuscular Volume 88.1 fL (80.0-100.0); Monocytes # (auto) 0.9 10 ^3/uL (0-1.3); Monocytes % (auto) 7.1 % (0.0-12.0); Neutrophils # (auto) 10.2 10 ^3/uL (1.6-8.6); Neutrophils % (auto) 79.8 % (37.0-80.0); Nucleated Red Blood Cells % 0.6 %; Platelet Count (auto) 202 10^3/uL (140-450); Red Blood Cells 5.32 10^6/uL (4.5-5.90); Red Cell Distribution Width 15.3 % (11.8-14.3); White Blood Cell 12.8 10^3/uL (4.4-10.8)
[2020-09-07 18:58] LABS: Anion Gap 12 (5-15); Carbon Dioxide 20 mmol/L (21-32); Chloride 105 mmol/L (98-107); Glucose 103 mg/dL (74-106); Potassium 4.3 mmol/L (3.5-5.1); Sodium 137 mmol/L (136-145)
[2020-09-07 19:08] LABS: Alanine Aminotransferase 48 U/L (16-61); Albumin 3.5 g/dL (3.4-5.0); Alkaline Phosphatase 67 U/L (45-117); Aspartate Aminotransferase 39 U/L (15-37); BUN/Creatinine Ratio 10.3; Bilirubin, Total 0.5 mg/dL (0.2-1.0); Blood Urea Nitrogen 14 mg/dL (7-18); Calcium 9.1 mg/dL (8.5-10.1); GFR African American 72 mL/min; GFR Non-African American 59 mL/min; Total Protein 8.2 g/dL (6.4-8.2)
[2020-09-07 19:09] LABS: Magnesium 1.8 mg/dL (1.6-2.6)
[2020-09-07 21:27] LABS: INR 2.6 (0.9-1.15); Partial Thromboplastin Time 42.7 sec (23.0-31.2)
[2020-09-07 21:30] VITALS: BP 126/86
== END 2020-09-07 22:57 | disposition home or self-care (01) ==
LOC: EDUNIT# 16:53 → EDBD 16:53 → ER 16:53
DX: R56.9 Unspecified convulsions (principal); I10 Essential (primary) hypertension; E78.5 Hyperlipidemia, unspecified
CPT/HCPCS: 36415; 71045; 80053; 83735; 85025; 85610; 85730; 93005; 96365; 96375; 99285; J1953; J2060; J7040; J7060

== ENCOUNTER 2020-10-10 09:31 | Emergency (ER) | payer OTHER, MEDICAID ==
[~2020-10-10] VITALS: Ht 182.9 cm; Wt 127.0 kg
[2020-10-10] MEDS ORDERED: SODIUM CHLORIDE 0.9% 1,000 ML IV ONE (09:45)
[2020-10-10 10:37] LABS: Basophils # (auto) 0.1 10 ^3/uL (0-0.2); Basophils % (auto) 1.1 % (0.0-2.0); Eosinophils # (auto) 0.2 10 ^3/uL (0-0.8); Eosinophils % (auto) 2.4 % (0.0-7.0); Hematocrit 45.5 % (41.0-53.0); Lymphocytes # (auto) 1.4 10 ^3/uL (0.4-5.4); Lymphocytes % (auto) 16.7 % (10.0-50.0); Mean Corpuscular Hemoglobin 29.2 pg (28.0-32.0); Mean Corpuscular Hgb Conc. 33.1 g/dL (32.0-36.0); Mean Corpuscular Volume 88.4 fL (80.0-100.0); Monocytes # (auto) 0.5 10 ^3/uL (0-1.3); Monocytes % (auto) 6.2 % (0.0-12.0); Neutrophils # (auto) 6.4 10 ^3/uL (1.6-8.6); Neutrophils % (auto) 73.6 % (37.0-80.0); Nucleated Red Blood Cells % 0.2 %; Red Blood Cells 5.15 10^6/uL (4.5-5.90); White Blood Cell 8.6 10^3/uL (4.4-10.8)
[2020-10-10 10:45] LABS: Albumin 3.5 g/dL (3.4-5.0); Anion Gap 7 (5-15); Blood Urea Nitrogen 11 mg/dL (7-18); Carbon Dioxide 24 mmol/L (21-32); Chloride 109 mmol/L (98-107); Glucose 134 mg/dL (74-106); Sodium 140 mmol/L (136-145)
[2020-10-10 10:50] LABS: Alanine Aminotransferase 54 U/L (16-61); Alkaline Phosphatase 58 U/L (45-117); Aspartate Aminotransferase 55 U/L (15-37); BUN/Creatinine Ratio 9.8; Bilirubin, Total 0.4 mg/dL (0.2-1.0); GFR African American 90 mL/min; GFR Non-African American 74 mL/min; Total Protein 7.6 g/dL (6.4-8.2)
[2020-10-10 14:53] LABS: Urine Bacteria NONE SEEN /hpf (None Seen); Urine Blood 1+ /uL (Negative); Urine Hyaline Cast FEW /lpf (0 - 2); Urine Mucus FEW (None Seen); Urine Specific Gravity 1.021 (1.001-1.035); Urine WBC 1 /hpf (0 - 3)
[2020-10-10] MEDS ORDERED: LORazepam 2MG/ML-1ML VIAL ONE (16:00)
[2020-10-10] MEDS ORDERED: LORazepam 2MG/ML-1ML VIAL IV ONE (16:15)
[2020-10-10] MEDS ORDERED: BACL20TA PO (17:51)
[2020-10-10 18:06] VITALS: BP 133/79
== END 2020-10-10 19:21 | disposition home or self-care (01) ==
LOC: EDBD 09:31 → ER 09:31
DX: G40.909 Epilepsy, unspecified, not intractable, without status epilepticus (principal); R41.82 Altered mental status, unspecified; E78.5 Hyperlipidemia, unspecified; I10 Essential (primary) hypertension; Z88.0 Allergy status to penicillin; Z88.1 Allergy status to other antibiotic agents; Z20.822 Contact with and (suspected) exposure to COVID-19
CPT/HCPCS: 36415; 70450; 71045; 80053; 81001; 84484; 85025; 87426; 93005; 96361; 96374; 99285; J2060; J7030

== ENCOUNTER 2020-11-12 14:18 | Emergency (ER) | payer OTHER, MEDICAID ==
[~2020-11-12] VITALS: Ht 182.9 cm; Wt 127.0 kg
[~2020-11-12 14:18] MED LIST changes: -BACL20TA; +BACL20TA PO; -HYDR-4607; -LAMO100T44 PO; -MET50T PO; -WARF1TAB36 PO
[2020-11-12 15:22] LABS: Basophils # (auto) 0.1 10 ^3/uL (0-0.2); Basophils % (auto) 0.8 % (0.0-2.0); Eosinophils # (auto) 0 10 ^3/uL (0-0.8); Eosinophils % (auto) 0.4 % (0.0-7.0); Hematocrit 47.7 % (41.0-53.0); Hemoglobin 16.2 g/dL (13.5-17.5); Lymphocytes # (auto) 1.1 10 ^3/uL (0.4-5.4); Lymphocytes % (auto) 11.1 % (10.0-50.0); Mean Corpuscular Hemoglobin 29.6 pg (28.0-32.0); Monocytes # (auto) 0.6 10 ^3/uL (0-1.3); Monocytes % (auto) 5.4 % (0.0-12.0); Neutrophils # (auto) 8.4 10 ^3/uL (1.6-8.6); Neutrophils % (auto) 82.3 % (37.0-80.0); Nucleated Red Blood Cells % 0.2 %; Red Blood Cells 5.48 10^6/uL (4.5-5.90); Red Cell Distribution Width 14.6 % (11.8-14.3); White Blood Cell 10.2 10^3/uL (4.4-10.8)
[2020-11-12 15:33] LABS: Albumin 3.3 g/dL (3.4-5.0); Anion Gap 8 (5-15); BUN/Creatinine Ratio 8.7; Blood Urea Nitrogen 11 mg/dL (7-18); Calcium 9.1 mg/dL (8.5-10.1); Carbon Dioxide 22 mmol/L (21-32); Chloride 105 mmol/L (98-107); GFR African American 79 mL/min; GFR Non-African American 65 mL/min; Glucose 116 mg/dL (74-106); Magnesium 2.1 mg/dL (1.6-2.6); Potassium 4.3 mmol/L (3.5-5.1); Sodium 135 mmol/L (136-145)
[2020-11-12 15:38] LABS: Alanine Aminotransferase 47 U/L (16-61); Alkaline Phosphatase 70 U/L (45-117); Aspartate Aminotransferase 26 U/L (15-37); Bilirubin, Total 0.4 mg/dL (0.2-1.0); Total Protein 7.9 g/dL (6.4-8.2)
[2020-11-12] MEDS ORDERED: LORazepam 2MG/ML-1ML VIAL IV ONE ×2 (18:30→18:45)
[2020-11-12] MEDS ORDERED: LORazepam 2MG/ML-1ML VIAL IV PRN (21:45)
[2020-11-12] MEDS ORDERED: lamoTRIgine 100 MG TAB PO SCH (22:00)
[2020-11-12] MEDS ORDERED: levETIRAcetam 500 MG TAB PO SCH (22:00)
[2020-11-13] VITALS: BP 141/88
== END 2020-11-13 01:04 | disposition still patient (30) ==
LOC: EDBD 14:18 → ER 14:18
DX: G40.909 Epilepsy, unspecified, not intractable, without status epilepticus (principal); R04.0 Epistaxis; R51.9 Headache, unspecified; I48.91 Unspecified atrial fibrillation; E78.5 Hyperlipidemia, unspecified; I10 Essential (primary) hypertension; R00.0 Tachycardia, unspecified; Z98.890 Other specified postprocedural states; W18.09XA Striking against other object with subsequent fall, initial encounter; Y93.89 Activity, other specified; Y92.89 Other specified places as the place of occurrence of the external cause; Y99.8 Other external cause status
CPT/HCPCS: 36415; 70450; 80053; 82542; 83735; 84484; 85025; 93005; 96374; 96376; 99285; J2060

== ENCOUNTER 2020-12-17 11:15 | Emergency (ER) | payer OTHER, MEDICAID ==
[~2020-12-17] VITALS: Ht 180.3 cm; Wt 158.8 kg
[2020-12-17] MEDS ORDERED: SODIUM CHLORIDE 0.9% 1,000 ML IV ONE (11:45)
[2020-12-17 12:00] LABS: Basophils # (auto) 0.1 10 ^3/uL (0-0.2); Basophils % (auto) 0.8 % (0.0-2.0); Eosinophils # (auto) 0.1 10 ^3/uL (0-0.8); Eosinophils % (auto) 0.8 % (0.0-7.0); Hematocrit 45.2 % (41.0-53.0); Hemoglobin 15.5 g/dL (13.5-17.5); Lymphocytes # (auto) 1.4 10 ^3/uL (0.4-5.4); Lymphocytes % (auto) 15.2 % (10.0-50.0); Mean Corpuscular Hemoglobin 29.9 pg (28.0-32.0); Mean Corpuscular Hgb Conc. 34.3 g/dL (32.0-36.0); Mean Corpuscular Volume 87.1 fL (80.0-100.0); Monocytes # (auto) 0.6 10 ^3/uL (0-1.3); Neutrophils # (auto) 7.1 10 ^3/uL (1.6-8.6); Neutrophils % (auto) 77.2 % (37.0-80.0); Nucleated Red Blood Cells % 0.1 %; Red Blood Cells 5.19 10^6/uL (4.5-5.90); Red Cell Distribution Width 15.2 % (11.8-14.3); White Blood Cell 9.3 10^3/uL (4.4-10.8)
[2020-12-17 12:15] LABS: INR 2.06 (0.9-1.15)
[2020-12-17 12:18] LABS: Albumin 3.3 g/dL (3.4-5.0); Calcium 9.3 mg/dL (8.5-10.1); Magnesium 2.2 mg/dL (1.6-2.6); Potassium 4.2 mmol/L (3.5-5.1)
[2020-12-17 12:21] LABS: BUN/Creatinine Ratio 9.6; Bilirubin, Total 0.5 mg/dL (0.2-1.0); Total Protein 7.4 g/dL (6.4-8.2)
[2020-12-17] MEDS ORDERED: LORazepam 2MG/ML-1ML VIAL ONE (14:22)
[2020-12-17] MEDS ORDERED: LORazepam 2MG/ML-1ML VIAL IV ONE (14:30)
[2020-12-17 17:48] LABS: Urine WBC None Seen /hpf (0 - 3)
[2020-12-17 18:01] LABS: Urine Bacteria NONE SEEN /hpf (None Seen); Urine Blood TRACE /uL (Negative); Urine Mucus FEW (None Seen); Urine Specific Gravity 1.027 (1.001-1.035)
[2020-12-17 18:12] LABS: Amphetamine Screen, Urine NEGATIVE (NEGATIVE); Barbiturate Scree,Urine NEGATIVE (NEGATIVE); Benzodiazephine Screen, Urine NEGATIVE (NEGATIVE); Cannabinoid Screen, Urine NEGATIVE (NEGATIVE); Cocaine Screen, Urine NEGATIVE (NEGATIVE); Opiate Scree,Urine NEGATIVE (NEGATIVE); Phencyclidine Screen, Urine NEGATIVE (NEGATIVE)
[2020-12-17 22:30] VITALS: BP 129/80
== END 2020-12-17 22:33 | disposition home or self-care (01) ==
LOC: ER 11:15 → EDBD 11:15 → ER 22:33
DX: R56.9 Unspecified convulsions (principal); I48.91 Unspecified atrial fibrillation; I10 Essential (primary) hypertension; E78.5 Hyperlipidemia, unspecified; Z79.01 Long term (current) use of anticoagulants; Z79.899 Other long term (current) drug therapy; Z88.0 Allergy status to penicillin; Z88.1 Allergy status to other antibiotic agents; Z88.5 Allergy status to narcotic agent; Z88.8 Allergy status to other drugs, medicaments and biological substances; Z20.822 Contact with and (suspected) exposure to COVID-19
CPT/HCPCS: 36415; 71045; 80053; 80307; 81001; 82542; 83605; 83735; 85025; 85610; 87426; 93005; 96361; 96365; 96375; 99285; J1953; J2060; J7060

== ENCOUNTER 2021-02-27 04:15 | Emergency (ER) | payer OTHER, MEDICAID ==
[~2021-02-27] VITALS: Ht 175.3 cm; Wt 136.1 kg
[2021-02-27] MEDS ORDERED: ACCU-CHEK COMFORT CURVE STRIP VI ONE (04:30)
[2021-02-27 05:19] LABS: Basophils # (auto) 0.1 10 ^3/uL (0-0.2); Basophils % (auto) 0.9 % (0.0-2.0); Eosinophils # (auto) 0 10 ^3/uL (0-0.8); Eosinophils % (auto) 0.5 % (0.0-7.0); Hematocrit 44.9 % (41.0-53.0); Hemoglobin 15.1 g/dL (13.5-17.5); Lymphocytes # (auto) 1.4 10 ^3/uL (0.4-5.4); Lymphocytes % (auto) 16.2 % (10.0-50.0); Mean Corpuscular Hemoglobin 29.6 pg (28.0-32.0); Mean Corpuscular Hgb Conc. 33.6 g/dL (32.0-36.0); Mean Corpuscular Volume 88.2 fL (80.0-100.0); Monocytes # (auto) 0.7 10 ^3/uL (0-1.3); Monocytes % (auto) 8.2 % (0.0-12.0); Neutrophils # (auto) 6.5 10 ^3/uL (1.6-8.6); Neutrophils % (auto) 74.2 % (37.0-80.0); Nucleated Red Blood Cells % 0.1 %; Red Blood Cells 5.09 10^6/uL (4.5-5.90); Red Cell Distribution Width 15.2 % (11.8-14.3); White Blood Cell 8.8 10^3/uL (4.4-10.8)
[2021-02-27 05:39] LABS: Albumin 3.4 g/dL (3.4-5.0); Calcium 8.6 mg/dL (8.5-10.1); Potassium 4.5 mmol/L (3.5-5.1)
[2021-02-27 05:43] LABS: BUN/Creatinine Ratio 10.1; Bilirubin, Total 0.4 mg/dL (0.2-1.0); Total Protein 7.3 g/dL (6.4-8.2)
[2021-02-27] MEDS ORDERED: LORazepam 2MG/ML-1ML VIAL IV ONE (08:30)
[2021-02-27 11:00] VITALS: BP 141/90
== END 2021-02-27 11:14 | disposition home or self-care (01) ==
LOC: EDBD 04:15 → EDUNIT# 04:15 → ER 04:15
DX: G40.802 Other epilepsy, not intractable, without status epilepticus (principal); I48.91 Unspecified atrial fibrillation; I10 Essential (primary) hypertension; E78.5 Hyperlipidemia, unspecified
CPT/HCPCS: 36415; 70450; 80053; 85025; 96365; 96375; 99285; J1953; J2060; J7060

== ENCOUNTER 2021-04-08 15:47 | Emergency (ER) | payer OTHER, MEDICAID ==
[~2021-04-08] VITALS: Ht 188 cm; Wt 158.8 kg
[2021-04-08 16:50] LABS: Basophils # (auto) 0.1 10 ^3/uL (0-0.2); Basophils % (auto) 0.6 % (0.0-2.0); Eosinophils # (auto) 0 10 ^3/uL (0-0.8); Eosinophils % (auto) 0.2 % (0.0-7.0); Hematocrit 44.1 % (41.0-53.0); Lymphocytes # (auto) 1.3 10 ^3/uL (0.4-5.4); Lymphocytes % (auto) 13.2 % (10.0-50.0); Mean Corpuscular Hemoglobin 29.7 pg (28.0-32.0); Mean Corpuscular Volume 87.5 fL (80.0-100.0); Monocytes # (auto) 0.6 10 ^3/uL (0-1.3); Monocytes % (auto) 5.8 % (0.0-12.0); Neutrophils # (auto) 7.7 10 ^3/uL (1.6-8.6); Neutrophils % (auto) 80.2 % (37.0-80.0); Nucleated Red Blood Cells % 0.4 %; Red Blood Cells 5.04 10^6/uL (4.5-5.90); Red Cell Distribution Width 14.7 % (11.8-14.3); White Blood Cell 9.6 10^3/uL (4.4-10.8)
[2021-04-08 17:05] LABS: Potassium 4.4 mmol/L (3.5-5.1)
[2021-04-08 17:14] LABS: Albumin 3.4 g/dL (3.4-5.0); BUN/Creatinine Ratio 9.6; Bilirubin, Total 0.3 mg/dL (0.2-1.0); Calcium 8.9 mg/dL (8.5-10.1); Total Protein 7.4 g/dL (6.4-8.2)
[2021-04-08] MEDS ORDERED: LORazepam 2MG/ML-1ML VIAL ONE (20:28)
[2021-04-08] MEDS ORDERED: LORazepam 2MG/ML-1ML VIAL IV ONE (21:45)
[2021-04-08] MEDS ORDERED: levETIRAcetam 500 MG TAB PO ONE (22:45)
[2021-04-08] MEDS ORDERED: levETIRAcetam 500 MG/5ML INJ IV ONE ×2 (23:38→23:59)
[2021-04-09 03:38] LABS: Urine Bacteria NONE SEEN /hpf (None Seen); Urine Blood 2+ /uL (Negative); Urine Hyaline Cast FEW /lpf (0 - 2); Urine Mucus FEW (None Seen); Urine WBC 3 /hpf (0 - 3)
[2021-04-09 07:13] VITALS: BP 145/67
== END 2021-04-09 07:22 | disposition home or self-care (01) ==
LOC: ER 15:47 → EDBD 15:47 → ER 04-09 07:19
DX: R56.9 Unspecified convulsions (principal); I10 Essential (primary) hypertension; I48.91 Unspecified atrial fibrillation; E78.5 Hyperlipidemia, unspecified; Z79.01 Long term (current) use of anticoagulants; Z79.899 Other long term (current) drug therapy; Z88.0 Allergy status to penicillin; Z88.1 Allergy status to other antibiotic agents; Z88.5 Allergy status to narcotic agent; Z88.8 Allergy status to other drugs, medicaments and biological substances
CPT/HCPCS: 36415; 80053; 81001; 84484; 85025; 96365; 96375; 99285; J1953; J2060; J7060

== ENCOUNTER 2021-05-21 13:30 | Emergency (ER) | payer OTHER, MEDICAID ==
[~2021-05-21] VITALS: Ht 172.7 cm; Wt 124.7 kg
[2021-05-21] MEDS ORDERED: LORazepam 2MG/ML-1ML VIAL IV ONE (13:45)
[2021-05-21 14:27] LABS: Basophils # (auto) 0.1 10 ^3/uL (0-0.2); Basophils % (auto) 0.8 % (0.0-2.0); Eosinophils # (auto) 0.1 10 ^3/uL (0-0.8); Eosinophils % (auto) 0.8 % (0.0-7.0); Hemoglobin 14.3 g/dL (13.5-17.5); Lymphocytes # (auto) 1.2 10 ^3/uL (0.4-5.4); Lymphocytes % (auto) 13.3 % (10.0-50.0); Mean Corpuscular Hemoglobin 29.7 pg (28.0-32.0); Mean Corpuscular Hgb Conc. 34.1 g/dL (32.0-36.0); Monocytes # (auto) 0.6 10 ^3/uL (0-1.3); Monocytes % (auto) 6.8 % (0.0-12.0); Neutrophils % (auto) 78.3 % (37.0-80.0); Nucleated Red Blood Cells % 0.3 %; Red Blood Cells 4.83 10^6/uL (4.5-5.90); Red Cell Distribution Width 14.3 % (11.8-14.3); White Blood Cell 8.9 10^3/uL (4.4-10.8)
[2021-05-21 14:39] LABS: Calcium 9.3 mg/dL (8.5-10.1); Chloride 109 mmol/L (98-107); Potassium 4.5 mmol/L (3.5-5.1); Sodium 140 mmol/L (136-145)
[2021-05-21 14:43] LABS: Alanine Aminotransferase 32 U/L (16-61); Albumin 3.2 g/dL (3.4-5.0); Anion Gap 4 (5-15); Aspartate Aminotransferase 19 U/L (15-37); BUN/Creatinine Ratio 14.2; Blood Alcohol < 3.0 mg/dL (0-5); Blood Urea Nitrogen 17 mg/dL (7-18); Carbon Dioxide 27 mmol/L (21-32); GFR African American 83 mL/min; GFR Non-African American 69 mL/min; Glucose 105 mg/dL (74-106)
[2021-05-21 14:45] LABS: Alkaline Phosphatase 61 U/L (45-117); Bilirubin, Total 0.3 mg/dL (0.2-1.0); Total Protein 7.2 g/dL (6.4-8.2)
[2021-05-21 16:00] VITALS: BP 128/78
== END 2021-05-21 17:38 | disposition home or self-care (01) ==
LOC: ER 13:30 → EDUNIT# 13:30 → ER 17:38
DX: R56.9 Unspecified convulsions (principal); I10 Essential (primary) hypertension
CPT/HCPCS: 36415; 70450; 80053; 80185; 80320; 82962; 85025; 93005; 96365; 96375; 99285; J1953; J2060; J7060

== ENCOUNTER 2021-05-21 23:16 | Emergency (ER) | payer OTHER, MEDICAID ==
[~2021-05-21] VITALS: Ht 185.4 cm; Wt 136.1 kg
[2021-05-22] MEDS ORDERED: levETIRAcetam 500 MG/5ML INJ IV ONE (00:45)
[2021-05-22] MEDS ORDERED: diazePAM 5 MG TAB PO ONE (03:45)
[2021-05-22 06:55] VITALS: BP 110/66
== END 2021-05-22 08:26 | disposition home or self-care (01) ==
LOC: EDBD 23:16 → ER 23:16 → EDUNIT# 23:16 → ER 05-22 03:15
DX: R56.9 Unspecified convulsions (principal); I10 Essential (primary) hypertension; Z88.0 Allergy status to penicillin; Z88.6 Allergy status to analgesic agent; Z88.1 Allergy status to other antibiotic agents
CPT/HCPCS: 96365; 99284; J1953; J7060

== ENCOUNTER 2021-06-15 22:37 | Emergency (ER) | payer OTHER, MEDICAID ==
[~2021-06-15] VITALS: Ht 182.9 cm; Wt 136.1 kg
[2021-06-15 23:44] LABS: Hematocrit 36.9 % (41.0-53.0); Hemoglobin 12.9 g/dL (13.5-17.5); Mean Corpuscular Hemoglobin 29.7 pg (28.0-32.0); Mean Corpuscular Hgb Conc. 34.8 g/dL (32.0-36.0); Mean Corpuscular Volume 85.4 fL (80.0-100.0); Red Blood Cells 4.33 10^6/uL (4.5-5.90); White Blood Cell 10.6 10^3/uL (4.4-10.8)
[2021-06-15] MEDS ORDERED: diazePAM 5 MG TAB PO ONE (23:45)
[2021-06-15 23:53] LABS: Basophils % (manual) 0 (0.0-2.0); Blast Cells 0; Metamyelocytes % 0; Promyelocytes % 0; Reactive Lymphocytes 0
[2021-06-16 00:15] LABS: Albumin 3.1 g/dL (3.4-5.0); BUN/Creatinine Ratio 12.1; Calcium 9.4 mg/dL (8.5-10.1); Potassium 4.2 mmol/L (3.5-5.1)
[2021-06-16 00:18] LABS: Bilirubin, Total 0.2 mg/dL (0.2-1.0); Total Protein 7.1 g/dL (6.4-8.2)
[2021-06-16 00:49] LABS: Band Neutrophils % (manual) 6; Eosinophils % (manual) 1 (0-7); Lymphocytes % (manual) 17 (10.0-50.0); Monocytes % (manual) 5 (0-12); Myelocytes % 3
[2021-06-16] MEDS ORDERED: levETIRAcetam 500 MG/5ML INJ IV ONE (00:53)
[2021-06-16 02:10] VITALS: BP 130/77
== END 2021-06-16 03:20 | disposition home or self-care (01) ==
LOC: EDUNIT# 22:37 → ER 22:37 → EDBD 22:37 → ER 06-16 03:20
DX: R56.9 Unspecified convulsions (principal); I10 Essential (primary) hypertension
CPT/HCPCS: 36415; 80053; 82542; 85007; 85027; 93005; 96365; 99284; J1953; J7060

== ENCOUNTER 2021-07-23 21:15 | Emergency (ER) | payer OTHER, MEDICAID ==
[~2021-07-23] VITALS: Ht 177.8 cm; Wt 124.7 kg
[2021-07-24] VITALS: BP 122/79
== END 2021-07-24 00:24 | disposition home or self-care (01) ==
LOC: ER 21:15 → EDBD 21:15 → ER 07-24 00:24
DX: G40.909 Epilepsy, unspecified, not intractable, without status epilepticus (principal); I10 Essential (primary) hypertension; Z79.01 Long term (current) use of anticoagulants; Z79.899 Other long term (current) drug therapy; Z88.0 Allergy status to penicillin; Z88.1 Allergy status to other antibiotic agents; Z88.5 Allergy status to narcotic agent; Z88.8 Allergy status to other drugs, medicaments and biological substances
CPT/HCPCS: 70450; 93005